=== PATIENT | male | born 1945 | race Caucasian/White ===

== ENCOUNTER 2022-05-17 10:15 | Emergency (ER) | payer MEDICARE, SELFPAY ==
--- NOTE | ~2022-05-17 | XR_ITS ---
XR chest 1V 05/17/2022 11:51 Indication: Weakness and dyspnea Procedure: AP view of the chest Comparison: No prior studies for comparison. Findings: Healed left rib fractures with deformity of the left thorax. Moderate cardiomegaly. No foca l air space disease, pulmonary edema, pleural effusion or suspected pneumothorax. Impression: 1: No acute cardiopulmonary disease. Reviewed, dictated and finalized at location A. Impression: 1: No acute cardiopulmonary disease.
--- NOTE | ~2022-05-17 | CT_ITS ---
EXAMINATION: CT brain wo con INDICATION: Generalized weakness COMPARISON: None TECHNIQUE: Standard unenhanced head CT. The dose-length product (DLP) was 605.33 mGy-cm. The mA was a djusted according to patient size. Iterative reconstruction technique was employed. FINDINGS: There is no acute intraparenchymal hemorrhage. No evidence of mass lesion. No evidence of a cute infarction. There is an old lacunar infarct of the left thalamus. There are subtle areas of low attenuation in the left frontal lobe, left insula, and left basal ganglia, likely prior infarction. T here is mild periventricular and subcortical hypodensity probably related to small vessel ischemic di sease. There is mild prominence of the sulci and ventricles related to cerebral atrophy. Intracranial calcified cerebral atherosclerosis is noted. There are no extra-axial collections. There is no mass effect or midline shift. The orbits and soft tissues are unremarkable. The visualized sinuses and mas toid air cells are well aerated. IMPRESSION: 1. No acute intracranial abnormality. 2. Age related findings. Reviewed, dictated and finalized at location B.
[2022-05-17 10:18] VITALS: BP 101/50; PULSE 79; RESP 16; TEMP 37; O2SAT 97
[2022-05-17 10:57] VITALS: BP 99/61; PULSE 88
--- NOTE | 2022-05-17 10:58 | PC.NURSE ---
REPORTS PT IS NOT DIZZY JUST WEAK REPORTS PCP THINKS PT HAS PARKINSON'S DISEASE AND HAS APPOINTMENT WITH NEUROLOGY IN [place] 05/30/22. REPORTS PT MOWED THE GRASS YESTERDAY BUT TODAY SO WEAK COULD NOT GET OUT OF BED. SHE ALSO REPORTS PT HAD TIA 5 YEARSAGO. SHE REPORTS PT SHUFFLES WHEN AMBULATED AND MOVES SLOW
[2022-05-17 11:02] VITALS: BP 101/57; PULSE 76
[2022-05-17 11:05] VITALS: BP 102/61; PULSE 84
--- NOTE | 2022-05-17 11:10 | ECG_ITS ---
Measurements Intervals [place] Rate: 61 P: [place]: 0 QRS: 2 QRSD: 96 T: 8 QT: 429 QTc: 433 Interpretive Statements ATRIAL FIBRILLATION DELAYED PRECORDIAL R/S TRANSITION BASELINE ARTIFACT- AVL, AVF ABNORMAL ECG Electronically Signed On 05-17-2022 15:30:38 CDT by Julio Cesar Huff D.O.
[2022-05-17 11:34] LABS: Basophils Absolute Auto 0.1 K/mm3 (0.0-0.1); Basophils Percent Auto 0.7 % (0.2-1.2); Eosinophils Absolute Auto 0.2 K/mm3 (0-0.3); Eosinophils Percent Auto 1.6 % (0-4.4); Hematocrit 42.4 % (42.0-52.0); Hemoglobin 14.7 g/dL (14.0-18.0); Immature Granulocyte Absolute 0.06 K/mm3 (0.00-0.031); Immature Granulocyte Percent A 0.4 % (0-0.5); Lymphocytes Percent Auto 18.1 % (18.3-44.2); Mean Corpuscular HGB Conc 34.7 g/dl (32-36); Mean Corpuscular Hemoglobin 31.1 pg (26-34); Mean Corpuscular Volume 89.8 fl (80-100); Monocytes Absolute Auto 1.7 K/mm3 (0.1-0.6); Monocytes Percent Auto 12.4 % (2.6-8.5); Neutrophils Absolute Auto 9.3 K/mm3 (1.3-6.7); Neutrophils Percent Auto 66.8 % (45.5-73.1); Platelet Count Result 254 k/mm3 (150-375); Red Blood Count 4.72 M/mm3 (4.6-6.20); Red Cell Distribution Width 13.1 % (11.5-14.5); White Blood Count 13.8 K/mm3 (4.5-10.0)
[2022-05-17 11:35] LABS: Appearance Urine Clear (Clear); Bilirubin Urine Negative (Negative); Blood Urine Negative (Negative); Color Urine Yellow (Yellow); Glucose Urine UA Negative (Negative); Ketones Urine Negative (Negative); Leukocyte Esterase Ur Negative LEU/UL (Negative); Nitrate Urine Negative (Negative); Protein Urine Negative (Negative); Specific Grav Ur 1.015 (1.001-1.035); Urobilinogen Urine 0.2 mg/dL (<2.0); pH Urine 6.5 (5.0-9.0)
[2022-05-17 11:37] LABS: Alanine Aminotransferase 19 U/L (6-50); Albumin Level 4.2 g/dL (3.5-5.1); Alkaline Phosphatase 59 U/L (38-126); Anion Gap 7 mmol/L (8-16); Aspartate Amino Transferase 23 U/L (17-59); Bilirubin,Total 0.8 mg/dL (0.2-1.3); Blood Urea Nitrogen 23 mg/dL (9-20); Calcium 9.1 mg/dL (8.4-10.2); Carbon Dioxide 30 mmol/L (22-30); Chloride 101 mmol/L (98-107); Estimated CRCL calculation 65 ml/min; Estimated Glomerular Filt Rate > 60; Glucose 96 mg/dL (65-110); Potassium 4.2 mmol/L (3.4-5.0); Sodium 138 mmol/L (137-145)
--- NOTE | 2022-05-17 11:37 | ED.WEAKNESS ---
HPI - Weakness General Chief complaint: Weakness Stated complaint: dizzy Time Seen by Provider: 05/17/22 11:30 History of Present Illness HPI Narrative: 76-year-old male presents emergency room coming by his . Has been having generalized weakness for several months. Seen by the primary physician has a scheduled appointment to be seen by neurologist for possible Parkinson's disease. However has not scheduled for another 2 to 3 weeks from now. Came in today because he is so weak that she had to help him get up out of the bed. After he was able to get up he was able to ambulate. He states he actually had a good day yesterday and mow the front and the back yard. He denies any focal weakness is just more generalized in nature. Denies any chills or fevers. No cough or congestion. No abdominal pain. No nausea vomiting diarrhea constipation. No blood in his stool or melanotic stools. There are a history of atrial fibrillation had a TIA about 5 years ago been on Xarelto ever since and no episodes since. Related Data Home Medications Medication Instructions Recorded Confirmed aspirin 81 mg tablet 81 mg PO 05/17/22 diltiazem HCl 240 mg 1 cap PO 05/17/22 capsule,extended release 24 hr, controlled (DILT-XR) lisinopril 2.5 mg tablet 1 tablet 05/17/22 rivaroxaban 20 mg tablet (Xarelto) 1 tablet 05/17/22 rosuvastatin 10 mg tablet 1 tablet 05/17/22 Allergies Allergy/AdvReac Type Severity Reaction Status Date / Time No Known Allergies Allergy Verified 05/17/22 11:23 Review of Systems Review of Systems: CONSTITUTIONAL: Denies fever, chills, or sweats. EYES: Denies visual changes, redness, or discharge. ENT: Denies rhinorrhea, congestion, sore throat, or otalgia. CARDIOVASCULAR: Denies chest pain, palpitations, or edema. RESPIRATORY: Denies cough or dyspnea. GASTROINTESTINAL: Denies abdominal pain, nausea, vomiting, or diarrhea. GENITOURINARY: Denies dysuria or hematuria. SKIN: Denies rash or itching. MUSCULOSKELETAL: Denies back pain, joint pain, or myalgia. NEUROLOGIC: Denies headache, numbness. Generalized weakness but no focal weakness PSYCHIATRIC: Denies anxiety or depression. [facility] Past Medical History Medical History Atrial fibrillation TIA (transient ischemic attack) Social History Social History Smoking status: Never smoker Living arrangements: with family Occupation/Education: retired Exam Narrative: APPEARANCE: Well appearing, no pain or distress, well-nourished. Head normocephalic and atraumatic. EYES: PERRLA/EOMI, conjunctivae very clear. NOSE: Normal with no drainage EARS:TMS clear Franca Sandoval, with good light reflex. THROAT: Pharynx clear, no exudate. NECK: Supple. No adenopathy, no masses. RESPIRATORY: Airway patent, respirations nonlabored. Clear to auscultation bilaterally, no rales, rhonchi, wheezing. CARDIOVASCULAR: Irregular rate and rhythm without murmurs, rubs, or gallops. ABDOMINAL: Soft, nontender, nondistended, no hepatosplenomegaly Musculoskeletal: Moves all extremities. Strength/ROM intact, No edema, No calf tenderness. NEURO: Alert. Cranial nerves II through XII intact. Normal gait. Good coordination. Nonfocal examination. No tremor noted SKIN:: Warm, dry. Normal Color PSYCHIATRIC: Normal affect/mood, normal interaction Course Vital Signs Vital signs: Vital Signs Temperature 98.6 F 05/17/22 10:18 Pulse Rate 79 05/17/22 10:18 Respiratory Rate 16 05/17/22 10:18 Blood Pressure 101/50 L 05/17/22 10:18 Pulse Oximetry 97 05/17/22 10:18 Oxygen Delivery Room Air 05/17/22 10:18 Temperature 98.6 F 05/17/22 10:18 Pulse Rate 63 05/17/22 12:21 Respiratory Rate 25 H 05/17/22 12:21 Blood Pressure 124/73 05/17/22 12:21 Pulse Oximetry 97 05/17/22 12:21 Oxygen Delivery Room Air 05/17/22 10:18 MDM - Weakness MDM Narrative Me
[2022-05-17 11:39] LABS: Add Urine Microscopic? NO
[2022-05-17] MEDS: SODIUM CHLORIDE 0.9% IV 1,000 ML 999 ML IV CONT (11:53)
[2022-05-17 11:54] VITALS: BP 117/77; PULSE 67; RESP 20; O2SAT 97
--- NOTE | 2022-05-17 11:54 | PC.NURSE ---
Pt returned from CT
[2022-05-17 12:21] VITALS: BP 124/73; PULSE 63; RESP 25; O2SAT 97
== END 2022-05-17 12:33 | disposition home or self-care (01) ==
PROVIDERS: Physician Assistant; Emergency Provider Emergency Medicine; PCP Internal Medicine
DX: R53.1 Weakness (principal); I48.20 Chronic atrial fibrillation, unspecified; Z86.73 Personal history of transient ischemic attack (TIA), and cerebral infarction without residual deficits; Z79.01 Long term (current) use of anticoagulants
CPT/HCPCS: 36415; 70450; 71045; 80053; 81003; 85025; 93005; 96360; 99284; J7030

== ENCOUNTER 2022-06-10 16:51 | Emergency (ER) | payer MEDICARE, SELFPAY ==
--- NOTE | 2022-06-10 16:53 | ECG_ITS ---
Measurements Intervals [place] Rate: 77 P: [place]: 0 QRS: 1 QRSD: 100 T: 13 QT: 381 QTc: 432 Interpretive Statements ATRIAL FIBRILLATION WITH ABERRANT CONDUCTION OR VENTRICULAR PREMATURE COMPLEXES LOW QRS VOLTAGE IN PRECORDIAL LEADS NONSPECIFIC T-WAVE ABNORMALITY Electronically Signed On 06-11-2022 11:35:51 CDT by Artie Gould M.D.
[2022-06-10 17:05] VITALS: BP 110/64; PULSE 75; RESP 15; TEMP 36.8; O2SAT 99
[2022-06-10 17:05] LABS: Basophils Absolute Auto 0.1 K/mm3 (0.0-0.1); Basophils Percent Auto 0.6 % (0.2-1.2); Eosinophils Absolute Auto 0.5 K/mm3 (0-0.3); Hematocrit 41.5 % (42.0-52.0); Hemoglobin 13.5 g/dL (14.0-18.0); Immature Granulocyte Absolute 0.02 K/mm3 (0.00-0.031); Immature Granulocyte Percent A 0.2 % (0-0.5); Lymphocytes Absolute Auto 2.63 K/mm3 (0.9-3.2); Lymphocytes Percent Auto 22.9 % (18.3-44.2); Mean Corpuscular HGB Conc 32.5 g/dl (32-36); Mean Corpuscular Hemoglobin 30.5 pg (26-34); Mean Corpuscular Volume 93.9 fl (80-100); Mean Platelet Volume 10.3 fl (7.4-10.4); Monocytes Absolute Auto 1.2 K/mm3 (0.1-0.6); Monocytes Percent Auto 10.2 % (2.6-8.5); Neutrophils Absolute Auto 7.1 K/mm3 (1.3-6.7); Neutrophils Percent Auto 62.1 % (45.5-73.1); Platelet Count Result 195 k/mm3 (150-375); Red Blood Count 4.42 M/mm3 (4.6-6.20); Red Cell Distribution Width 13.2 % (11.5-14.5); White Blood Count 11.5 K/mm3 (4.5-10.0)
[2022-06-10 17:15] LABS: Alanine Aminotransferase 17 U/L (6-50); Albumin Level 4.2 g/dL (3.5-5.1); Alkaline Phosphatase 47 U/L (38-126); Anion Gap 10 mmol/L (8-16); Aspartate Amino Transferase 30 U/L (17-59); Bilirubin,Total 0.6 mg/dL (0.2-1.3); Blood Urea Nitrogen 28 mg/dL (9-20); Carbon Dioxide 27 mmol/L (22-30); Chloride 103 mmol/L (98-107); Estimated CRCL calculation 66 ml/min; Estimated Glomerular Filt Rate > 60; Glucose 98 mg/dL (65-110); Potassium 3.9 mmol/L (3.4-5.0); Sodium 140 mmol/L (137-145)
== END 2022-06-10 18:18 | disposition left against medical advice (07) ==
LOC: ANHED 18:32
PROVIDERS: Emergency Provider Emergency Medicine; PCP Internal Medicine
DX: S09.90XA Unspecified injury of head, initial encounter (principal)
CPT/HCPCS: 36415; 80053; 85025; 93005; 99199

== ENCOUNTER 2022-09-24 23:41 | Inpatient (IN) | payer MEDICARE, SELFPAY ==
--- NOTE | ~2022-09-24 | CT_ITS ---
EXAMINATION: CT cervical spine wo con DATE: 09/25/2022 00:37 INDICATION: Neck pain. Fall. TECHNIQUE: Computed tomography (CT) of the cervical spine was performed without intravenous contrast. Automated exposure control and iterative reconstruction technique were employed. The dose-length pro duct was 565.60 mGy-cm. COMPARISON: None FINDINGS: There is mild kyphosis of cervical spine. Vertebral body heights are normal. There is a hea ling fracture of anteroinferior aspect of T2 vertebral body with callus formation. Vertebral body hei ghts are normal. There are bridging endplate osteophytes from C4 to T1 and from T2 to at least T4, co nsistent with diffuse idiopathic skeletal hyperostosis (DISH). There is mildly decreased disc height at C2-C3 and C3-C4. There is mildly decreased disc height at C4-C5 and moderately decreased disc heig ht at C5-C6 and C6-C7 with interbody fusion. 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 There is developmental osseous central canal stenosis. The following disc levels are specifically discussed: C2-C3: There is mild bilateral uncovertebral joint osteoarthritis. There is moderate bilateral facet joint osteoarthritis. There is mild bilateral neural foraminal stenosis. There is no central canal st enosis. C3-C4: There is mild right and moderate left uncovertebral joint osteoarthritis. There is moderate bi lateral facet joint osteoarthritis. There is mild bilateral neural foraminal stenosis. There is mild central canal stenosis. C4-C5: There is moderate bilateral uncovertebral joint hypertrophy. There is no facet joint osteoarth ritis. There is mild right and moderate left neural foraminal stenosis. There is severe central canal stenosis. C5-C6: There is moderate bilateral uncovertebral joint hypertrophy. There is ankylosis of the facet j oints without hypertrophy. There is mild bilateral neural foraminal stenosis. There is severe central canal stenosis. C6-C7: There is severe bilateral uncovertebral joint hypertrophy. There is ankylosis of the facet arcenio nts with mild hypertrophy. There is mild bilateral neural foraminal stenosis. There is severe central canal stenosis. C7-T1: There is mild bilateral uncovertebral joint hypertrophy. There is moderate right and mild left facet joint osteoarthritis. There is mild bilateral neural foraminal stenosis. There is mild central canal stenosis. IMPRESSION: 1. Healing fracture of T2 vertebral body. 2. Severe cervical spondylosis. 3. DISH. Reviewed, dictated and finalized at location A. ICAL ORDER FILLER
--- NOTE | ~2022-09-24 | XR_ITS ---
EXAMINATION: XR chest 1V portable DATE: 09/25/2022 00:20 INDICATION: Weakness. Fall. TECHNIQUE: A single frontal view of the chest was obtained. COMPARISON: Chest 2 views 05/17/2022 FINDINGS: There is mild atelectasis in the lower lung zones. No pleural effusion or pneumothorax. Car diomegaly is noted. There are prominent paracardial fat pads. IMPRESSION: 1. Mild atelectasis in the lower lung zones. 2. Cardiomegaly. Reviewed, dictated and finalized at location A. ING WORKER
--- NOTE | ~2022-09-24 | CT_ITS ---
EXAMINATION: CT brain wo con DATE: 09/25/2022 00:37 INDICATION: Neck pain. Fall. Unsteady gait. TECHNIQUE: Computed tomography (CT) of the head was performed without intravenous contrast. The mA wa s adjusted according to patient size. Iterative reconstruction technique was employed. The dose-lengt h product was 605.33 mGy-cm. COMPARISON: Head CT 05/17/2022 FINDINGS: There are old infarcts in left thalamus and left basal ganglia. There are scattered areas o f low attenuation in the cerebral white matter, which is within normal limits for the patient's age. There is no intracranial hemorrhage, acute infarction, or abnormal intracranial mass lesion. The vent ricles are normal in size. There is mild mucosal thickening in the paranasal sinuses. The mastoid air cells are normal. IMPRESSION: 1. 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 Reviewed, dictated and finalized at location A. [employer]
--- NOTE | ~2022-09-24 | MR_ITS ---
EXAMINATION: MR brain/brain stem wo con DATE: 09/25/2022 16:32 INDICATION: Right-sided weakness TECHNIQUE: Magnetic resonance imaging (MRI) of the brain and brainstem was performed without intraven ous contrast. Sequences included sagittal and axial T1-weighted SE, axial diffusion-weighted FS SE, a xial T2*-weighted GRE, axial T2-weighted FLAIR, and axial T2-weighted FSE. Apparent diffusion coeffic ient (ADC) maps were created. COMPARISON: Head CT dated 09/25/2022 FINDINGS: Small old left thalamic lacunar infarct. There are no areas of restricted diffusion to suggest acute infarction. Small T1 hypointense anterior falcine lipoma. No intracranial hemorrhage or other abnorma l intracranial mass lesion. There are scattered areas of nonspecific increased T2-weighted signal int ensity in the cerebral white matter, predominantly involving the deep and periventricular white matte r. There are no intraparenchymal signal abnormalities seen on the other pulse sequences. Symmetric pr ominence of the sulci consistent with mild age-appropriate diffuse cerebral volume loss. The ventricl es are symmetric and normal in size. There are no abnormal extra-axial fluid collections. Flow voids are seen in the cerebral arteries on the T2-weighted sequences consistent with their expected patency . Visualized orbits and soft tissues are unremarkable. IMPRESSION: 1. No acute intracranial process. 2. Small old lacunar infarct in the left thalamus. 3. Mild scattered white matter T2 hyperintensity which is within normal limits for age and likely seq uela of chronic small vessel ischemic disease. Reviewed, dictated and finalized at location B. QUALITY TECHNICIAN IMPRESSION: 1. No acute intracranial process. 2. Small old lacunar infarct in the left thalamus. 3. Mild scattered white matter T2 hyperintensity which is within normal limits for age and likely sequela of chronic small vessel ischemic disease.
[2022-09-24 23:45] VITALS: BP 168/78; PULSE 84; RESP 27; TEMP 37.7; O2SAT 98
[2022-09-24 23:57] VITALS: PULSE 91; RESP 30; O2SAT 98
--- NOTE | 2022-09-24 23:59 | ECG_ITS ---
Measurements Intervals [place] Rate: 92 P: [place]: 0 QRS: 49 QRSD: 86 T: 29 QT: 347 QTc: 430 Interpretive Statements ATRIAL FIBRILLATION DELAYED PRECORDIAL R/S TRANSITION BORDERLINE ST-T WAVE ABNORMALITY- INFERIOR LEADS BASELINE ARTIFACT- I, II, III, AVR, V1 ABNORMAL ECG COMPARED TO ECG 06/10/2022 16:56:57 NO SIGNIFICANT CHANGES Electronically Signed On 09-25-2022 7:49:57 BONE GRINDER by Julio Cesar Huff D.O.
[2022-09-25] VITALS (25 sets, daily range): BP systolic 117–155; BP diastolic 68–114; PULSE 62–98; RESP 18–30; TEMP 37.2–37.6; O2SAT 95–100; BMI 33.7; BMI 10.0
[2022-09-25 00:19] LABS: Basophils Absolute Auto 0.1 K/mm3 (0.0-0.1); Basophils Percent Auto 0.7 % (0.2-1.2); Eosinophils Absolute Auto 0.1 K/mm3 (0-0.3); Eosinophils Percent Auto 1.2 % (0-4.4); Hematocrit 43.7 % (42.0-52.0); Hemoglobin 14.4 g/dL (14.0-18.0); Immature Granulocyte Absolute 0.03 K/mm3 (0.00-0.031); Immature Granulocyte Percent A 0.3 % (0-0.5); Lymphocytes Percent Auto 13.9 % (18.3-44.2); Mean Corpuscular Hemoglobin 30.7 pg (26-34); Mean Corpuscular Volume 93.2 fl (80-100); Mean Platelet Volume 10.1 fl (7.4-10.4); Monocytes Absolute Auto 1.3 K/mm3 (0.1-0.6); Monocytes Percent Auto 15.6 % (2.6-8.5); Neutrophils Absolute Auto 5.9 K/mm3 (1.3-6.7); Neutrophils Percent Auto 68.3 % (45.5-73.1); Platelet Count Result 207 k/mm3 (150-375); Red Blood Count 4.69 M/mm3 (4.6-6.20); Red Cell Distribution Width 12.9 % (11.5-14.5); White Blood Count 8.6 K/mm3 (4.5-10.0)
[2022-09-25 00:29] LABS: Alanine Aminotransferase 24 U/L (6-50); Albumin Level 4.3 g/dL (3.5-5.1); Alkaline Phosphatase 64 U/L (38-126); Anion Gap 12 mmol/L (8-16); Aspartate Amino Transferase 30 U/L (17-59); Bilirubin,Total 0.4 mg/dL (0.2-1.3); Blood Urea Nitrogen 28 mg/dL (9-20); Calcium 9.1 mg/dL (8.4-10.2); Carbon Dioxide 28 mmol/L (22-30); Chloride 97 mmol/L (98-107); Estimated CRCL calculation 47 ml/min; Estimated Glomerular Filt Rate 46; Glucose 97 mg/dL (65-110); INR 2.8; Lactic Acid Reflex 0.9 mmol/L (0.7-2.0); Potassium 4.1 mmol/L (3.4-5.0); Prothrombin Time 28.6 Seconds (11.1-14.7); Sodium 137 mmol/L (137-145)
[2022-09-25 00:30] LABS: Partial Thromboplastin Time 39.1 SECONDS (22.3-36.8)
[2022-09-25 00:40] LABS: Troponin I 0.019 ng/mL (0.000-0.034)
[2022-09-25] MEDS: SODIUM CHLORIDE 0.9% IV 1,000 ML 999 ML IV CONT (00:42)
[2022-09-25 00:54] LABS: Influenza A QL RT-PCR Negative (Negative); Influenza B QL RT-PCR Negative (Negative); SARS-CoV-2 RNA PCR Positive
[2022-09-25 01:14] LABS: Appearance Urine Clear (Clear); Bilirubin Urine Negative (Negative); Blood Urine Trace-intact (Negative); Color Urine Yellow (Yellow); Glucose Urine UA Negative (Negative); Ketones Urine 1+ mg/dL (Negative); Leukocyte Esterase Ur Negative LEU/UL (Negative); Mucus Urine Rare /lpf; Nitrate Urine Negative (Negative); Protein Urine Negative (Negative); RBC Urine 0-2 /hpf (0-2); Urobilinogen Urine 0.2 mg/dL (<2.0); WBC Urine 0-3 /hpf; pH Urine 6.5 (5.0-9.0)
[2022-09-25 01:24] LABS: Add Urine Microscopic? YES
--- NOTE | 2022-09-25 01:55 | ED.GENADULT ---
HPI - General Adult General Chief complaint: Fall Stated complaint: FALLS, WEAKNESS Time Seen by Provider: 09/24/22 23:49 History of Present Illness HPI narrative: 77-year-old gentleman who presents the emergency department with chief complaint of generalized weakness and ground-level fall. The patient's family who has been staying with him for couple of days noticed that today he was more unsteady and the patient fell in the bathroom this evening. Patient was so weak that when he was trying to ambulate to the bathroom he urinated on himself. Patient has history of mobility issues and is scheduled to have a cervical spine surgery in the near future. Patient's has been sick which is why she is not in the emergency department tonight with him. Patient had a low-grade temperature upon arrival to the emergency department. Related Data Home Medications Medication Instructions Recorded Confirmed aspirin 81 mg tablet 81 mg PO 05/17/22 diltiazem HCl 240 mg 1 cap PO 05/17/22 capsule,extended release 24 hr, controlled (DILT-XR) lisinopril 2.5 mg tablet 1 tablet 05/17/22 rivaroxaban 20 mg tablet (Xarelto) 1 tablet 05/17/22 rosuvastatin 10 mg tablet 1 tablet 05/17/22 Adult One Daily Multivitamin 09/24/22 B Complex 09/24/22 Vitamin D3 09/24/22 calcium citrate 09/24/22 coQ10 (ubiquinol) 100 mg capsule 100 mg PO BID 09/24/22 mirabegron 50 mg tablet,extended mg PO 09/24/22 release 24 hr (Myrbetriq) Allergies Allergy/AdvReac Type Severity Reaction Status Date / Time No Known Allergies Allergy Verified 09/24/22 23:52 Review of Systems Review of Systems: A 10 system review of systems was completed on the patient and is negative except for what is stated in the HPI. Nursing and ancillary documentation was reviewed. [facility] Past Medical History Medical History Atrial fibrillation TIA (transient ischemic attack) Social History Social History Smoking status: Never smoker Exam Narrative: GENERAL: Well-appearing, well-nourished, and in no acute distress. HEAD: Normocephalic, atraumatic. EYES: PERRLA and EOMI. ENT: Nares clear, no rhinorrhea or epistaxis. Mucous membranes moist. NECK: Supple. CHEST: Clear to auscultation. No respiratory distress. HEART: Regular rate and rhythm. No murmur heard. Normal peripheral pulses. ABDOMEN: Soft, nontender, nondistended, normal active bowel sounds. EXTREMITIES: Normal range of motion. No edema. SKIN: Warm, dry, no rash. NEURO: No focal deficits. Alert and oriented x3. Patient has overall global weakness and is unable to ambulate even with maximal assistance PSYCH: Normal mood and affect. Course Course Emergency Course: Patient is feeling better after receiving IV fluids the patient was positive for COVID-19 patient was attempted for ambulation and was unable to stand due to generalized global weakness on his own power. The case will be discussed with the hospitalist for admission. Vital Signs Vital signs: Vital Signs Temperature 37.7 C H 09/24/22 23:45 Pulse Rate 84 09/24/22 23:45 Respiratory Rate 27 H 09/24/22 23:45 Blood Pressure 168/78 H 09/24/22 23:45 Pulse Oximetry 98 09/24/22 23:45 Oxygen Delivery Room Air 09/24/22 23:45 Temperature 37.7 C H 09/24/22 23:45 Pulse Rate 84 09/24/22 23:45 Respiratory Rate 27 H 09/24/22 23:45 Blood Pressure 168/78 H 09/24/22 23:45 Pulse Oximetry 98 09/24/22 23:45 Oxygen Delivery Room Air 09/24/22 23:45 Medical Decision Making Vital Signs Vital Signs: Vital Signs Temperature 37.7 C H 09/24/22 23:45 Pulse Rate 84 09/24/22 23:45 Respiratory Rate 27 H 09/24/22 23:45 Blood Pressure 168/78 H 09/24/22 23:45 Pulse Oximetry 98 09/24/22 23:45 Oxygen Delivery Room Air 09/24/22 23:45 Temperature 37.7 C H 09/24/22 23:45 Pulse Rat
[2022-09-25 03:29] LABS: Procalcitonin 0.1 ng/mL
--- NOTE | 2022-09-25 04:50 | ADMGEN ---
This patient, Lencho Ramsay, was admitted to Medical Room 255-. Patient/family oriented to hospital policies and general routines including ID bracelet, bed and alarms, visiting hours, pain management, procedures, bathroom and other care routines, personal items, smoking policy, room service/diet, and visiting hours. Information on how to activate the Rapid Response Team has been discussed. Patient/Family are encouraged to report perceived risks to care and to ask questions if they do not understand what they are told or what they should do.
[2022-09-25] MEDS: SODIUM CHLORIDE 0.9% IV 1,000 ML 125 ML IV CONT (05:41)
--- NOTE | 2022-09-25 08:31 | PM.IMHP ---
H&P: HPI History of Present Illness Date/Time: 09/25/22 08:31 Chief Complaint: generalised weakness Narrative: 77-year-old gentleman who presents the emergency department with chief complaint of generalized weakness and ground-level fall.? The patient's family who has been staying with him for couple of days noticed that today he was more unsteady and the patient fell in the bathroom this evening.? Patient was so weak that when he was trying to ambulate to the bathroom he urinated on himself.? Patient has history of mobility issues and is scheduled to have a cervical spine surgery in the near future.? Patient's has been sick which is why she is not in the emergency department tonight with him.? Patient had a low-grade temperature upon arrival to the emergency department. he was tested positive for COVID. he Is admitted for further evaluation and management Review of Systems Review of Systems: - CONSTITUTIONAL: Denies weight loss, fever and chills. - HEENT: Denies changes in vision and hearing - RESPIRATORY: Denies SOB and reports mild cough. - CV: Denies palpitations and CP. - GI: Denies abdominal pain, nausea, vomiting and diarrhea. - : Denies dysuria and urinary frequency. - MSK: Denies myalgia and joint pain. - SKIN: Denies rash and pruritus. - NEUROLOGICAL: Denies headache and syncope. - PSYCHIATRIC: Denies recent changes in mood. Denies anxiety and depression. All systems reviewed & are unremarkable except as noted in HPI and below PMFSH Past Medical History Medical History (Updated 09/25/22 @ 08:33 by Bill Cunningham MD) Atrial fibrillation TIA (transient ischemic attack) Family History Family History (Updated 09/25/22 @ 04:53 by Cici Paul RN) Mother Alzheimer disease Social History Social History Smoking status: Current some day smoker Tobacco type: cigarettes Second hand tobacco smoke exposure: No Additional smoking assessment comments: smokes one cigar every 3rd day, has been going on for 20 years Alcohol intake: never Substance use: current Substance use type: marijuana Last use: unknown but w/in this year Lack of Transportation: No Lack of Food: Never True Current Housing: I Have Housing Concerned About Future Housing: No Difficulty Paying Gas/Electric Bills: No Difficulty Paying for Meds: No Currently Unemployed: No Education: High School Diploma/GED Difficulty w/ Childcare or Family Care: No Spiritual care concerns: No (Mu-Ism) Meds Home Medications and Allergies Home Medications Medication Instructions Recorded Confirmed Type aspirin 81 mg tablet 81 mg PO DAILY 05/17/22 09/25/22 History diltiazem HCl 240 mg 1 cap PO DAILY 05/17/22 09/25/22 History capsule,extended release 24 hr, controlled (DILT-XR) lisinopril 2.5 mg tablet 1 tablet PO DAILY 05/17/22 09/25/22 History rivaroxaban 20 mg tablet (Xarelto) 1 tablet PO DAILY 05/17/22 09/25/22 History rosuvastatin 10 mg tablet 1 tablet PO DAILY 05/17/22 09/25/22 History Adult One Daily Multivitamin 1 tablet PO DAILY 09/24/22 09/25/22 History B Complex 1 tablet PO DAILY 09/24/22 09/25/22 History Vitamin D3 5,000 mcg PO DAILY 09/24/22 09/25/22 History calcium citrate 400 mg PO DAILY 09/24/22 09/25/22 History coQ10 (ubiquinol) 100 mg capsule 100 mg PO BID 09/24/22 09/25/22 History mirabegron 50 mg tablet,extended 50 mg PO DAILY 09/24/22 09/25/22 History release 24 hr (Myrbetriq) Allergies Allergy/AdvReac Type Severity Reaction Status Date / Time No Known Allergies Allergy Verified 09/24/22 23:52 Vital Signs Vital Signs - 24 hr 09/24/22 23:45 09/24/22 23:57 09/25/22 00:00 Temperature 99.8 F H Pulse Rate 84 91 90 Respiratory Rate 27 H 30 H 28 H Blood Pressure 168/78 H Pulse Oximetry 98 98 98 Oxygen Delivery Room Air 09/25/22 00:01 09/25/22 00:15 09/25/22 00:16 Temperature
[2022-09-25 09:03] LABS: Creatine Kinase 63 U/L (55-170)
[2022-09-25] MEDS: CALCIUM CARBONATE (OSCAL) 500 MG TABLET PO (10:00)
[2022-09-25] MEDS: CHOLECALCIFEROL 1,000 UNITS TABLET 5000 UNITS PO (10:00)
[2022-09-25] MEDS: ROSUVASTATIN 10 MG TABLET PO (10:00)
[2022-09-25] MEDS: ASPIRIN 81 MG CHEWABLE TABLET PO (10:00)
[2022-09-25] MEDS: MIRABEGRON 50 MG ER TABLET PO (10:00)
[2022-09-25] MEDS: RIVAROXABAN 20 MG TABLET PO (17:27)
[2022-09-26] VITALS (17 sets, daily range): BP systolic 69–138; BP diastolic 42–89; PULSE 64–93; RESP 16–18; TEMP 36.7–36.9; O2SAT 95–97
[2022-09-26] MEDS: SODIUM CHLORIDE 0.9% IV 1,000 ML 125 ML IV CONT (03:17)
--- NOTE | 2022-09-26 06:34 | PC.NURSE ---
patient up to bathroom at 0430 for bm. mx noted afib rvr with hr 150-180 with exertion. patient back to bed and medicated for pain and anxiety but hr sustained at over 150 for an additional 15 -20 min. order recieved for lopressor 5mg iv. patient continued to stay in afib rvr. stat ekg confirmed rhythm to be afib rvr 150. order recieved to tx to imu and start card gtt. report called to elizabeth and patient tx to room 205.
[2022-09-26 06:37] LABS: Basophils Absolute Auto 0.1 K/mm3 (0.0-0.1); Basophils Percent Auto 0.8 % (0.2-1.2); Eosinophils Percent Auto 0.4 % (0-4.4); Hematocrit 42.6 % (42.0-52.0); Hemoglobin 14.4 g/dL (14.0-18.0); Immature Granulocyte Absolute 0.01 K/mm3 (0.00-0.031); Immature Granulocyte Percent A 0.1 % (0-0.5); Lymphocytes Absolute Auto 1.89 K/mm3 (0.9-3.2); Lymphocytes Percent Auto 22.2 % (18.3-44.2); Mean Corpuscular HGB Conc 33.8 g/dl (32-36); Mean Corpuscular Hemoglobin 30.4 pg (26-34); Mean Corpuscular Volume 89.9 fl (80-100); Mean Platelet Volume 10.5 fl (7.4-10.4); Monocytes Absolute Auto 1.5 K/mm3 (0.1-0.6); Neutrophils Absolute Auto 5.1 K/mm3 (1.3-6.7); Neutrophils Percent Auto 59.5 % (45.5-73.1); Platelet Count Result 179 k/mm3 (150-375); Red Blood Count 4.74 M/mm3 (4.6-6.20); Red Cell Distribution Width 12.6 % (11.5-14.5); White Blood Count 8.5 K/mm3 (4.5-10.0)
[2022-09-26 06:57] LABS: Alanine Aminotransferase 23 U/L (6-50); Albumin Level 3.9 g/dL (3.5-5.1); Alkaline Phosphatase 54 U/L (38-126); Anion Gap 14 mmol/L (8-16); Aspartate Amino Transferase 37 U/L (17-59); Bilirubin,Total 0.5 mg/dL (0.2-1.3); Blood Urea Nitrogen 17 mg/dL (9-20); Calcium 8.1 mg/dL (8.4-10.2); Carbon Dioxide 27 mmol/L (22-30); Chloride 94 mmol/L (98-107); Estimated CRCL calculation 72 ml/min; Estimated Glomerular Filt Rate > 60; Glucose 92 mg/dL (65-110); Magnesium 1.9 mg/dL (1.6-2.3); Potassium 3.8 mmol/L (3.4-5.0); Sodium 135 mmol/L (137-145)
[2022-09-26] MEDS: CALCIUM CARBONATE (OSCAL) 500 MG TABLET PO (08:06)
[2022-09-26] MEDS: ROSUVASTATIN 10 MG TABLET PO (08:06)
[2022-09-26] MEDS: ASPIRIN 81 MG CHEWABLE TABLET PO (08:06)
[2022-09-26] MEDS: MIRABEGRON 50 MG ER TABLET PO (08:06)
[2022-09-26] MEDS: CHOLECALCIFEROL 1,000 UNITS TABLET 5000 UNITS PO (08:07)
--- NOTE | 2022-09-26 13:46 | PM.IMPN ---
Progress Note: A&P Assessment and Plan (1) COVID-19: Code(s): U07.1 - COVID-19 Status: Acute (2) Generalized weakness: Code(s): R53.1 - Weakness Status: Acute (3) KRYSTA (acute kidney injury): Code(s): N17.9 - Acute kidney failure, unspecified Status: Acute (4) Atrial fibrillation: Code(s): I48.91 - Unspecified atrial fibrillation Status: Acute Plan # generalized weakness: likely due to underlying COVID infection. continue to monitor # Fall: Head CT and Cervical Spine CT negative. 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 MRI brain negative for acute stroke. PT OT to see # COVID 19 positive: not hypoxic. CXR with mild atelectasis in lower lung zones. cardiomegaly. # KRYSTA: mild. continue to monitor. hold lisinopril. Renal failure resolved. If eating okay will stop IV fluid. # atrial fibrillation: home medications # HTN: home diltiazem. hold lisinopril for now. # HLP: rosuvastatin. CK level normal. LFT normal # Cervical spine disease: planned for surgery. CT with healing fracture of T2 vertebral body with severe cerevical spondylosis and DISH # DVT proph: xarelto # Code status: full code Subjective Date/time seen: 09/26/22 13:46 Interval history: Feels okay. Generally weak. Denies any new complaint. No she chest pain or shortness of breath. No fever chills. Mild cough present Review of Systems Review of Systems: All systems reviewed & are unremarkable except as noted in HPI and below Exam Narrative: GENERAL: Well-appearing, well-nourished, and in no acute distress. HEAD: Normocephalic, atraumatic. EYES: PERRLA and EOMI. ENT: Nares clear, no rhinorrhea or epistaxis.? Mucous membranes moist. NECK: Supple. CHEST: Clear to auscultation.? No respiratory distress. HEART: Regular rate and rhythm.? No murmur heard.? Normal peripheral pulses. ABDOMEN: Soft, nontender, nondistended, normal active bowel sounds. EXTREMITIES: Normal range of motion.? No edema. SKIN: Warm, dry, no rash. NEURO: No focal deficits.? Alert and oriented x3.? Patient has overall global weakness PSYCH: Normal mood and affect. Objective Data Vital Signs Vital Signs: Vital Signs - 24 hr 09/25/22 14:52 09/25/22 15:47 09/25/22 20:28 Temperature 99.0 F 98.9 F Pulse Rate 76 87 Respiratory Rate 20 18 Blood Pressure 117/68 130/73 Pulse Oximetry 95 98 Oxygen Delivery Room Air 09/25/22 20:00 09/25/22 20:00 09/26/22 00:00 Temperature Pulse Rate 87 87 87 Respiratory Rate 18 Blood Pressure Pulse Oximetry 98 Oxygen Delivery Room Air 09/26/22 06:51 09/26/22 04:00 09/26/22 08:00 Temperature 98.1 F Pulse Rate 88 87 Respiratory Rate 16 Blood Pressure 128/72 Pulse Oximetry 96 Oxygen Delivery Room Air 09/26/22 08:00 09/26/22 11:37 09/26/22 11:49 Temperature Pulse Rate 91 Respiratory Rate Blood Pressure 96/53 L 92/51 L Pulse Oximetry Oxygen Delivery 09/26/22 12:14 09/26/22 12:15 09/26/22 12:17 Temperature Pulse Rate Respiratory Rate Blood Pressure 69/42 L 76/51 L 110/72 Pulse Oximetry Oxygen Delivery Intake/Output Intake/Output: Intake & Output 09/23/22 09/24/22 09/25/22 09/26/22 23:59 23:59 23:59 23:59 Intake Total 3220 450 Output Total 650 Balance 2570 450 Meds/Results Medications: Active Medications Generic Name Dose Route Start Last Admin Trade Name Freq PRN Reason Stop Dose Admin Acetaminophen 650 mg 09/25/22 02:11 Acetaminophen 325 Mg Tablet PO Q4H PRN Mild Pain (1-3) or Fever Aspirin 81 mg 09/25/22 09:00 09/26/22 08:06 Aspirin 81 Mg Chewable Tablet PO 10/25/22 08:59 81 mg DAILY JUANA Administration Calcium Carbonate 500 mg 09/25/22 09:00 09/26/22 08:06 Calcium Carbonate (Oscal) 500 Mg Tablet PO 10/25/22 08:59 500 mg DAILY JUANA Administration Diltiazem HCl 240 mg 09/25/22 09:00 09/26/22 08:06 Diltiazem Hcl Cd 240
[2022-09-26] MEDS: RIVAROXABAN 20 MG TABLET PO (17:19)
[2022-09-27] VITALS (11 sets, daily range): BP systolic 81–121; BP diastolic 53–94; PULSE 64–93; RESP 16–20; TEMP 35.7–36.6; O2SAT 96
[2022-09-27 06:20] LABS: Basophils Absolute Auto 0.1 K/mm3 (0.0-0.1); Basophils Percent Auto 0.7 % (0.2-1.2); Eosinophils Absolute Auto 0.2 K/mm3 (0-0.3); Eosinophils Percent Auto 2.5 % (0-4.4); Hematocrit 43.4 % (42.0-52.0); Hemoglobin 14.7 g/dL (14.0-18.0); Immature Granulocyte Absolute 0.01 K/mm3 (0.00-0.031); Immature Granulocyte Percent A 0.1 % (0-0.5); Lymphocytes Percent Auto 35.2 % (18.3-44.2); Mean Corpuscular HGB Conc 33.9 g/dl (32-36); Mean Corpuscular Hemoglobin 30.6 pg (26-34); Mean Corpuscular Volume 90.4 fl (80-100); Mean Platelet Volume 10.6 fl (7.4-10.4); Neutrophils Absolute Auto 3.2 K/mm3 (1.3-6.7); Neutrophils Percent Auto 46.5 % (45.5-73.1); Platelet Count Result 174 k/mm3 (150-375); Red Cell Distribution Width 12.4 % (11.5-14.5); White Blood Count 6.8 K/mm3 (4.5-10.0)
[2022-09-27 06:46] LABS: Alanine Aminotransferase 26 U/L (6-50); Albumin Level 3.8 g/dL (3.5-5.1); Alkaline Phosphatase 58 U/L (38-126); Anion Gap 9 mmol/L (8-16); Aspartate Amino Transferase 45 U/L (17-59); Bilirubin,Total 0.5 mg/dL (0.2-1.3); Blood Urea Nitrogen 16 mg/dL (9-20); Calcium 8.6 mg/dL (8.4-10.2); Carbon Dioxide 30 mmol/L (22-30); Chloride 98 mmol/L (98-107); Estimated CRCL calculation 66 ml/min; Estimated Glomerular Filt Rate > 60; Glucose 95 mg/dL (65-110); Magnesium 2.2 mg/dL (1.6-2.3); Potassium 4.1 mmol/L (3.4-5.0); Sodium 137 mmol/L (137-145)
[2022-09-27] MEDS: CHOLECALCIFEROL 1,000 UNITS TABLET 5000 UNITS PO (09:34)
[2022-09-27] MEDS: MIRABEGRON 50 MG ER TABLET PO (09:34)
[2022-09-27] MEDS: ROSUVASTATIN 10 MG TABLET PO (09:34)
[2022-09-27] MEDS: CALCIUM CARBONATE (OSCAL) 500 MG TABLET PO (09:34)
[2022-09-27] MEDS: ASPIRIN 81 MG CHEWABLE TABLET PO (09:34)
--- NOTE | 2022-09-27 13:32 | PM.IMPN ---
Progress Note: A&P Assessment and Plan (1) COVID-19: Code(s): U07.1 - COVID-19 Status: Acute (2) Generalized weakness: Code(s): R53.1 - Weakness Status: Acute (3) KRYSTA (acute kidney injury): Code(s): N17.9 - Acute kidney failure, unspecified Status: Acute (4) Atrial fibrillation: Code(s): I48.91 - Unspecified atrial fibrillation Status: Acute Plan # generalized weakness: likely due to underlying COVID infection. continue to monitor. Patient still orthostatic positive # orthostatic hypotension: Likely due to dehydration/ deconditioning. Will recheck and monitor. # Fall: Head CT and Cervical Spine CT negative. 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 MRI brain negative for acute stroke. PT OT to see # COVID 19 positive: not hypoxic. CXR with mild atelectasis in lower lung zones. cardiomegaly. # KRYSTA: mild. continue to monitor. hold lisinopril. Renal failure resolved. IV fluids stopped # atrial fibrillation: home medications # HTN: home diltiazem. hold lisinopril for now. # HLP: rosuvastatin. CK level normal. LFT normal # Cervical spine disease: planned for surgery. CT with healing fracture of T2 vertebral body with severe cerevical spondylosis and DISH # DVT proph: xarelto # Code status: full code # disposition: accepted to [facility] swing bed. however He does not want to go there. As far away. Will let care coordination a Subjective Date/time seen: 09/27/22 13:32 Interval history: Feeling better but still weak. He was orthostatic positive yesterday. He has some cough but no shortness of breath or chest pain. He would like to go home. Discussed risk Of going home due to his generalized weakness Review of Systems Review of Systems: All systems reviewed & are unremarkable except as noted in HPI and below Exam Narrative: GENERAL: Well-appearing, well-nourished, and in no acute distress. HEAD: Normocephalic, atraumatic. EYES: PERRLA and EOMI. ENT: Nares clear, no rhinorrhea or epistaxis.? Mucous membranes moist. NECK: Supple. nontender CHEST: Clear to auscultation.? No respiratory distress. HEART: Regular rate and rhythm.? No murmur heard.? Normal peripheral pulses. ABDOMEN: Soft, nontender, nondistended, normal active bowel sounds. EXTREMITIES: Normal range of motion.? No edema. SKIN: Warm, dry, no rash. NEURO: No focal deficits.? Alert and oriented x3.? Patient has overall global weakness PSYCH: Normal mood and affect. Objective Data Vital Signs Vital Signs: Vital Signs - 24 hr 09/26/22 14:45 09/26/22 14:47 09/26/22 14:50 Temperature Pulse Rate Respiratory Rate Blood Pressure 122/78 112/74 102/70 Pulse Oximetry Oxygen Delivery 09/26/22 16:00 09/26/22 16:51 09/26/22 21:08 Temperature 98.1 F 98.4 F Pulse Rate 80 78 93 Respiratory Rate 18 16 Blood Pressure 132/64 138/89 Pulse Oximetry 97 95 Oxygen Delivery 09/26/22 20:00 09/26/22 20:00 09/27/22 00:00 Temperature Pulse Rate 77 93 Respiratory Rate Blood Pressure Pulse Oximetry Oxygen Delivery Room Air 09/27/22 04:00 09/27/22 07:14 09/27/22 09:30 Temperature 97.8 F Pulse Rate 76 78 Respiratory Rate 16 Blood Pressure 121/67 Pulse Oximetry 96 Oxygen Delivery Room Air 09/27/22 08:00 09/27/22 12:04 Temperature Pulse Rate 78 89 Respiratory Rate Blood Pressure Pulse Oximetry Oxygen Delivery Intake/Output Intake/Output: Intake & Output 09/24/22 09/25/22 09/26/22 09/27/22 23:59 23:59 23:59 23:59 Intake Total 3220 2040 570 Output Total 650 Balance 2570 2040 570 Meds/Results Medications: Active Medications Generic Name Dose Route Start Last Admin Trade Name Freq PRN Reason Stop Dose Admin Acetaminophen 650 mg 09/25/22 02:11 Acetaminophen 325 Mg Tablet PO Q4H PRN Mild Pain (1-3) or Fever Aspirin 81 mg 09/25/22 09:00 09/27/22 09:34 As
[2022-09-27] MEDS: SODIUM CHLORIDE 0.9% IV 500 ML 75 ML IV CONT (15:54)
[2022-09-27] MEDS: RIVAROXABAN 20 MG TABLET PO (17:54)
[2022-09-28] VITALS (9 sets, daily range): BP systolic 95–132; BP diastolic 56–71; PULSE 72–94; RESP 16–18; TEMP 36–36.7; O2SAT 94–99
[2022-09-28 05:53] LABS: Basophils Absolute Auto 0.1 K/mm3 (0.0-0.1); Basophils Percent Auto 0.9 % (0.2-1.2); Eosinophils Absolute Auto 0.5 K/mm3 (0-0.3); Eosinophils Percent Auto 8.9 % (0-4.4); Hematocrit 43.2 % (42.0-52.0); Hemoglobin 14.6 g/dL (14.0-18.0); Immature Granulocyte Absolute 0.01 K/mm3 (0.00-0.031); Immature Granulocyte Percent A 0.2 % (0-0.5); Lymphocytes Absolute Auto 2.17 K/mm3 (0.9-3.2); Lymphocytes Percent Auto 37.7 % (18.3-44.2); Mean Corpuscular HGB Conc 33.8 g/dl (32-36); Mean Corpuscular Hemoglobin 30.4 pg (26-34); Mean Corpuscular Volume 89.8 fl (80-100); Mean Platelet Volume 10.3 fl (7.4-10.4); Monocytes Absolute Auto 0.7 K/mm3 (0.1-0.6); Neutrophils Absolute Auto 2.3 K/mm3 (1.3-6.7); Neutrophils Percent Auto 40.3 % (45.5-73.1); Platelet Count Result 175 k/mm3 (150-375); Red Blood Count 4.81 M/mm3 (4.6-6.20); Red Cell Distribution Width 12.1 % (11.5-14.5); White Blood Count 5.8 K/mm3 (4.5-10.0)
[2022-09-28 05:59] LABS: Alanine Aminotransferase 27 U/L (6-50); Albumin Level 3.6 g/dL (3.5-5.1); Alkaline Phosphatase 51 U/L (38-126); Anion Gap 9 mmol/L (8-16); Aspartate Amino Transferase 39 U/L (17-59); Bilirubin,Total 0.5 mg/dL (0.2-1.3); Blood Urea Nitrogen 19 mg/dL (9-20); Calcium 8.6 mg/dL (8.4-10.2); Carbon Dioxide 31 mmol/L (22-30); Chloride 100 mmol/L (98-107); Estimated CRCL calculation 72 ml/min; Estimated Glomerular Filt Rate > 60; Glucose 91 mg/dL (65-110); Magnesium 2.1 mg/dL (1.6-2.3); Potassium 3.9 mmol/L (3.4-5.0); Sodium 140 mmol/L (137-145)
--- NOTE | 2022-09-28 09:44 | PM.DS ---
DS: Admitting Diagnosis Discharge Date 09/28/2022 Admitting Diagnosis generalized weakness DS: Discharge Diagnosis Discharge Diagnosis (1) COVID-19: Code(s): U07.1 - COVID-19 Status: Acute (2) Generalized weakness: Code(s): R53.1 - Weakness Status: Acute (3) KRYSTA (acute kidney injury): Code(s): N17.9 - Acute kidney failure, unspecified Status: Acute (4) Atrial fibrillation: Code(s): I48.91 - Unspecified atrial fibrillation Status: Acute DS: Summary Hospital Course Hospital Course: # generalized weakness: likely due to underlying COVID infection. continue to monitor.? Patient still orthostatic positive was treated with IV fluid with improvement # orthostatic hypotension:? Likely due to dehydration/ deconditioning.? recheck and monitor. Treated with IV fluid. Improved continue PT OT # Fall: Head CT and Cervical Spine CT negative. 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 MRI brain negative for acute stroke.? PT OT to see who recommended rehabilitation at SNF # COVID 19 positive: not hypoxic. CXR with mild atelectasis in lower lung zones. cardiomegaly. # KRYSTA: mild. continue to monitor. hold lisinopril.? Renal failure resolved.? ? IV fluids stopped. Due to orthostatic hypotension and mild KRYSTA lisinopril discontinued at discharge # atrial fibrillation: home medications # HTN: home diltiazem. hold lisinopril for now. and discontinued at discharge # HLP: rosuvastatin.? CK level normal. LFT normal # Cervical spine disease: planned for surgery. CT with healing fracture of T2 vertebral body with severe cerevical spondylosis and DISH # DVT proph: xarelto # Code status: full code # disposition:? ? accepted to [facility] swing bed. discharged to [facility] swing bed for further rehabilitation Time Spent with Patient Time attestation: Total time spent providing and/or coordinating discharge services: 35 minutes Exam Narrative: GENERAL: Well-appearing, well-nourished, and in no acute distress. HEAD: Normocephalic, atraumatic. EYES: PERRLA and EOMI. ENT: Nares clear, no rhinorrhea or epistaxis.? Mucous membranes moist. NECK: Supple. nontender CHEST: Clear to auscultation.? No respiratory distress. HEART: Regular rate and rhythm.? No murmur heard.? Normal peripheral pulses. ABDOMEN: Soft, nontender, nondistended, normal active bowel sounds. EXTREMITIES: Normal range of motion.? No edema. SKIN: Warm, dry, no rash. NEURO: No focal deficits.? Alert and oriented x3.? Patient has overall global weakness PSYCH: Normal mood and affect. DS: Data Data Completed and Pending Labs on day of discharge: Labs from last 24 hours 09/28/22 09/28/22 05:21 05:21 WBC 5.8 RBC 4.81 Hgb 14.6 Hct 43.2 MCV 89.8 MCH 30.4 MCHC 33.8 RDW 12.1 Plt Count 175 MPV 10.3 Immature Gran % (Auto) 0.2 Neut % (Auto) 40.3 L Lymph % (Auto) 37.7 [place] % (Auto) 12.0 H Eos % (Auto) 8.9 H Baso % (Auto) 0.9 Lymph # (Auto) 2.17 [place] # (Auto) 0.7 H Eos # (Auto) 0.5 H Baso # (Auto) 0.1 Abs Immat Gran (auto) 0.01 Absolute Neuts (auto) 2.3 Absolute Nucleated RBC 0.0 Nucleated RBC % 0.0 Sodium 140 Potassium 3.9 Chloride 100 Carbon Dioxide 31 H Anion Gap 9 BUN 19 Creatinine 1.00 Estim Creat Clear Calc 72 Estimated GFR > 60 Glucose 91 Calcium 8.6 Magnesium 2.1 Total Bilirubin 0.5 AST 39 ALT 27 Alkaline Phosphatase 51 Total Protein 7.0 Albumin 3.6 Imaging Radiologist's impression: ITS Impressions Chest X-Ray 09/25/22 06:54 IMPRESSION: 1. Mild atelectasis in the lower lung zones. 2. Cardiomegaly. Head CT 09/25/22 06:57 IMPRESSION: 1. 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 Cervical Spine CT 09/25/22 07:09 IMPRESSION: 1. Healing fracture of T2 vertebral body. 2. Severe cervical spondylosis. 3. DISH. Brain MRI 09/25/22 17:36 IMPRESSIO
[2022-09-28] MEDS: ASPIRIN 81 MG CHEWABLE TABLET PO (09:46)
[2022-09-28] MEDS: CHOLECALCIFEROL 1,000 UNITS TABLET 5000 UNITS PO (09:46)
[2022-09-28] MEDS: CALCIUM CARBONATE (OSCAL) 500 MG TABLET PO (09:46)
[2022-09-28] MEDS: ROSUVASTATIN 10 MG TABLET PO (09:46)
[2022-09-28] MEDS: MIRABEGRON 50 MG ER TABLET PO (10:24)
== END 2022-09-28 15:20 | disposition swing bed (61) | DRG 178 ==
LOC: ANHED 09-25 02:01 → ANH2MED 09-25 03:36
PROVIDERS: Admitting Provider Internal Medicine; Emergency Provider Emergency Medicine; PCP Internal Medicine; Visit Provider Internal Medicine
DX: U07.1 COVID-19 (principal); N17.9 Acute kidney failure, unspecified; I95.1 Orthostatic hypotension; R53.1 Weakness; I48.91 Unspecified atrial fibrillation; I10 Essential (primary) hypertension; E78.5 Hyperlipidemia, unspecified; M48.10 Ankylosing hyperostosis [Forestier], site unspecified; W18.30XA Fall on same level, unspecified, initial encounter; F17.290 Nicotine dependence, other tobacco product, uncomplicated; M47.812 Spondylosis without myelopathy or radiculopathy, cervical region; M84.68XD Pathological fracture in other disease, other site, subsequent encounter for fracture with routine healing; Z79.899 Other long term (current) drug therapy
CPT/HCPCS: 36415; 70450; 70551; 71045; 72125; 80053; 81001; 82550; 83605; 83735; 84145; 84484; 85025; 85610; 85730; 87502; 93005; 96361; 96365; 97110; 97162; 97166; 97530; 97535; 99285; A9270; G0378; J0131; J7030; J7040; U0003; U0005

== ENCOUNTER 2022-09-28 16:03 | Inpatient (IN) | payer MEDICARE, SELFPAY ==
--- OUTSIDE RECORDS SUMMARY | 2022-09-28 16:09 | XMS_ITS | Encounter Summary ---
:1945 Author Reason for Visit fell and hurt his back about 10 days ago Assessment and Plan Assessment Note Patient presented for follow up. Studie s ordered as below. Discussed plan with patient/caregiver, who expressed underst anding. Follow up as noted below. 1. Spinal stenosis in cervical region ? neurological surgeon referral 2. Essential hypertension -- recheck lab(s) 09/25/22 ? lisinopril 2.5 mg tablet ? microalbumin/creatinine, mass ratio, urine 3. Hyperlipidemia LDL control (LDL of 79 on 07/27/2019) -- will change Lovastatin 20 mg to --> R osuvastain 10 mg qd -- recheck lab(s) 09/25/22 ? rosuvastatin 10 mg tablet ? lipid panel, serum ? CMP, serum or plasma 4. Atrial fibrillation -- recheck lab(s) 09/25/22 ? Xarelto 20 mg tablet ? CBC w/ auto diff 5. Transient cerebral ischemia (after stopping Xarelto x 1 day) -- BP controlled LDL was 79 on 07/27/2019 -- Neurosurgeon Dr Armand Jones recommend s adding low dose Aspirin 81 mg qd -- recheck lab(s) 09/25/22 6. Overactive bladder -- improved w/ decreasing evening fluid intake ? Myrbetriq 50 mg tablet,extended relea se 7. Body mass index 30+ - obesity -- advised weight loss; Patient gained 1 # since his last visit -- Patient's BMI today is 34.2 (ideal is between 20-25) ? advised to lose weight 8. Hepatitis C screening -- tested negative for Hepatitis C on
--- OUTSIDE RECORDS SUMMARY | 2022-09-28 16:09 | XMS_ITS ---
:1945 Author Care Team Providers Name Role Phone DR. VASILE GONZALES Primary Care Provider [phone] DR. VASILE GONZALES Referring Provider [phone] Allergies Code Code System Name Reaction Severity Status Onset NKDA ? Medications Name Status Start Date Stop Date ? ? aspirin 81 mg chewable tablet Active ? No t available Chew 1 tablet every day by oral route. Boostrix Tdap 2.5 Lf unit-8 mcg-5 Lf/0.5 mL intramuscular suspen lois Active ? Not available ADM 0.5ML IM UTD calcium 600 mg capsule Active ? Not avail able Take by oral route. CoQ10 Active ? Not available DILT-XR 240 mg capsule, extended release Active ? Not available Take 1 capsule every day by oral route. Fluzone High-Dose 2019-20 (PF) 180 mcg/0.5 mL intramuscular syri nge Active ? Not available ADMINISTER 0.5ML IN THE MUSCLE DIRECTED lisinopril 5 mg tablet Active ? Not avail able TK 1 T PO QD methylprednisolone 4 mg tablets in a dose pack Active ? Not available FPD Prevnar 13 (PF) 0.5 mL intramuscular syringe Active ? Not available ADM 0.5ML IM UTD rosuvastatin 10 mg tablet Active ? Not av ailable TK 1 T PO DAILY. STOP THE LOVASTATIN Shingrix (PF) 50 mcg/0.5 mL intramuscular suspension, kit Active ? Not available Problems No Known Problems Procedures Date Name Performed by ? ? Total Knee Arthroplasty Information not available 12/02/2019 XR, Knee In-Office Order Internal Use Only DO Not Attach Compendium DO N
--- OUTSIDE RECORDS SUMMARY | 2022-09-28 16:09 | XMS_ITS | Encounter Summary ---
:1945 Author Care Team Providers Name Role Phone Saul Cheng MD Primary Care Provider [phone] Reason for Visit new patient Assessment and Plan 1. Benign essential hypertension Now well controlled 2. Obstructive sleep apnea syndrome 3. Paroxysmal atrial fibrillation Rate is well controlled On Xarelto Obtain echo to evaluate for structural/f unctional disease. 4. Dyslipidemia Needs to keep LDL less than 70, and HDL more than 40 Will get lipid profile results from PCP 5. Pre-surgery evaluation Lexiscan Myoview stress test, pt can no t walk. Has known coronary artery disease, with atypical symptoms now, the patient is not able to walk on treadmill Discussion Note: None recorded.Patient educational handouts: No information available. Plan of Care Reminders Provider Appointments None recorded. ? ? Lab None recorded. ? ? Referral None recorded. ? ? Procedures None recorded. ? ? Surgeries None recorded. ? ? Imaging None recorded. ? ? Medications Name Start Date ? ? aspirin 81 mg tablet,delayed release 10/01/2021 Take 1 tablet every day by oral route. B Complex ? 1 tab QD calcium ? 600 mg tab QD Co Q-10 100 mg capsule ? Take 1 capsule every day by oral route as directed. DILT-XR 240 mg capsule, extended release ? TAKE 1 CAPSULE DAILY hydrocodone 5 mg-acetaminophen 325 mg tablet ? TAKE 1 TABLET BY MOUTH UP TO THREE TIMES DAILY NEE DED.
--- OUTSIDE RECORDS SUMMARY | 2022-09-28 16:09 | XMS_ITS ---
:1945 Author Care Team Providers Name Role Phone VASILE GONZALES MD Primary Care Provider [phone] Allergies Code Code System Name Reaction Severity Status Onset NKDA ? Medications Name Status Start Date Stop Date ? ? aspirin 81 mg tablet,delayed release Active 10/01/2021 Not available Take 1 tablet every day by oral route. atorvastatin 10 mg tablet Completed ? 2015 Take 1 tablet every day by oral route for 30 days. azithromycin 250 mg tablet Completed ? 01/13 TAKE 2 TABLETS (500 MG) BY ORAL ROUTE O NCE DAILY FOR 1 DAY THEN 1 TABLET (250 MG) BY ORAL ROUTE ONCE DAILY FOR 4 DAYS B Complex Active ? Not available 1 tab QD Boostrix Tdap 2.5 Lf unit-8 mcg-5 Lf/0.5 mL Completed ? 11/12/2019 intramuscular suspension calcium Active ? Not available 600 mg tab QD Co Q-10 100 mg capsule Active ? Not avail able Take 1 capsule every day by oral route as directed. DILT-XR 240 mg capsule, extended release Active ? Not available diltiazem CD 240 mg capsule,extended release 24 hr Completed 03/26/2016 04/16/2016 Take 1 capsule every day by oral route. doxycycline hyclate 100 mg tablet Completed ? 07/05/2022 TAKE 1 TABLET BY MOUTH TWICE DAILY Fluad Quad (65yr up)(PF) 60 mcg (15 mcg x 4)/ 0.5mL IM syringe Completed ? 11/29/2020 ADM 0.5ML IM UTD Fluzone High-Dose (PF) 180 mcg/0.5 mL intramuscular syri nge Completed ? 05/29/2020 ADMINISTER 0.5ML IN THE MUSCLE DIRECTED Gemtesa 75 mg tablet Completed 11/11/2021 07/05/2022 TAKE 1 T
--- OUTSIDE RECORDS SUMMARY | 2022-09-28 16:09 | XMS_ITS ---
:1945 Author Care Team Providers Name Role Phone Saul Cheng Primary Care Provider Unavailable Allergies Code Code System Name Reaction Severity Status Onset NKDA ? Medications Name Status Start Date Stop Date ? ? aspirin 81 mg tablet,delayed release Active ? Not available Take 1 tablet every day by oral route. atorvastatin 10 mg tablet Completed ? 2015 Take 1 tablet every day by oral route for 30 days. azithromycin 250 mg tablet Completed ? 01/13 Boostrix Tdap 2.5 Lf unit-8 mcg-5 Lf/0.5 mL Active ? Not available intramuscular suspension Calcium 600 Completed ? 11/29/2020 CoQ10 SG 100 Active ? Not available DILT-XR 240 mg capsule, extended release Active ? Not available diltiazem CD 240 mg capsule,extended release 24 hr Active ? Not available doxycycline hyclate 100 mg tablet Active ? Not available TAKE 1 TABLET BY MOUTH TWICE DAILY Fluad Quad (65yr up)(PF) 60 mcg (15 mcg x 4)/ 0.5mL IM syringe Completed ? 11/29/2020 ADM 0.5ML IM UTD Fluzone High-Dose (PF) 180 mcg/0.5 mL intramuscular syri nge Completed ? 05/29/2020 ADMINISTER 0.5ML IN THE MUSCLE DIRECTED Gemtesa 75 mg tablet Active ? Not availab le TAKE 1 TABLET DAILY hydrocodone 5 mg-acetaminophen 325 mg tablet Active ? Not available TAKE 1 TABLET BY MOUTH UP TO THREE TIMES DAILY NEEDED. ID NOW COVID-19 Test Kit Active ? Not fred ilable TEST DIRECTED TODAY krill oil 350 mg-om-3 90 mg-dha 24 mg-epa 50 mg-phospholipid s capsule Completed ? 10/01/2021
[2022-09-28 16:10] VITALS: BP 104/74; PULSE 66; RESP 18; TEMP 35.9; O2SAT 98
--- NOTE | 2022-09-28 16:23 | ADMGEN ---
This patient, Lencho Ramsay, was admitted to 2nd Floor Room 209-1. Patient/family oriented to hospital policies and general routines including ID bracelet, bed and alarms, visiting hours, pain management, procedures, bathroom and other care routines, personal items, smoking policy, room service/diet, and visiting hours. Information on how to activate the Rapid Response Team has been discussed. Patient/Family are encouraged to report perceived risks to care and to ask questions if they do not understand what they are told or what they should do.
[2022-09-28 16:25] VITALS: BP 104/74; PULSE 66; RESP 18; TEMP 35.9; O2SAT 98
[2022-09-28 16:49] VITALS: BMI 32.3
[2022-09-28] MEDS: RIVAROXABAN 10 MG TABLET 20 MG PO (17:48)
[2022-09-28] MEDS: traZODone HCL 50 MG TABLET PO (21:19)
[2022-09-28 23:18] VITALS: BP 110/62; PULSE 75; RESP 17; TEMP 36.6; O2SAT 95
[2022-09-29 08:00] VITALS: BP 99/59; PULSE 71; RESP 19; TEMP 35.6; O2SAT 93
[2022-09-29] MEDS: MIRABEGRON 25 MG ER TABLET 50 MG PO (08:08)
[2022-09-29] MEDS: ASPIRIN 81 MG ENTERIC TABLET PO (08:08)
[2022-09-29] MEDS: dilTIAZem HCL CD 180 MG CAP.ER.24H PO (08:08)
--- NOTE | 2022-09-29 09:25 | PM.IMHP ---
H&P: HPI History of Present Illness Date/Time: 09/29/22 09:25 Chief Complaint: rehab , weakness, COVID Narrative: this is a 77-year-old male that presented to to [facility] with complaints of generalized weakness status post fall. Patient was diagnosed with COVID stabilized and transitioned to our swing bed. Patient admitted in swing bed for rehabilitation due to decreased balance decreased mobility in severe limited function endurant and/or mobility. The patient denies SOB, CP, palpitation, extremity numbness, lightheadedness, dizziness, constipation, diarrhea, chills, or fever. patient has no complaints at this time. Review of Systems Review of Systems: A 14 organ system Review of Systems was performed and pertinent positives included in the HPI, otherwise remaining ROS is negative. [facility] Past Medical History Medical History (Updated 09/29/22 @ 09:34 by BEENA Mike) Atrial fibrillation TIA (transient ischemic attack) Family History Family History Mother Alzheimer disease Social History Social History (Updated 09/28/22 @ 16:26 by May Herrera RN) Smoking status: Current every day smoker Tobacco type: cigarettes and cigars Second hand tobacco smoke exposure: No Additional smoking assessment comments: 1 cigar every two days. Alcohol intake: never Substance use: never Substance use type: does not use Last use: unknown but w/in this year Lack of Transportation: No Lack of Food: Never True Current Housing: I Have Housing Concerned About Future Housing: No Difficulty Paying Gas/Electric Bills: No Difficulty Paying for Meds: No Currently Unemployed: No Education: High School Diploma/GED Difficulty w/ Childcare or Family Care: No Spiritual care concerns: No Meds Home Medications and Allergies Home Medications Medication Instructions Recorded Confirmed Type aspirin 81 mg tablet 81 mg PO DAILY 05/17/22 09/28/22 History diltiazem HCl 240 mg 1 cap PO DAILY 05/17/22 09/28/22 History capsule,extended release 24 hr, controlled (DILT-XR) rivaroxaban 20 mg tablet (Xarelto) 1 tablet PO DAILY 05/17/22 09/28/22 History rosuvastatin 10 mg tablet 1 tablet PO DAILY 05/17/22 09/28/22 History Adult One Daily Multivitamin 1 tablet PO DAILY 09/24/22 09/28/22 History B Complex 1 tablet PO DAILY 09/24/22 09/28/22 History Vitamin D3 5,000 mcg PO DAILY 09/24/22 09/28/22 History calcium citrate 400 mg PO DAILY 09/24/22 09/28/22 History coQ10 (ubiquinol) 100 mg capsule 100 mg PO BID 09/24/22 09/28/22 History mirabegron 50 mg tablet,extended 50 mg PO DAILY 09/24/22 09/28/22 History release 24 hr (Myrbetriq) Allergies Allergy/AdvReac Type Severity Reaction Status Date / Time No Known Allergies Allergy Verified 09/24/22 23:52 Vital Signs Vital Signs - 24 hr 09/28/22 16:10 09/28/22 23:18 09/29/22 08:00 Temperature 96.7 F L 97.8 F 96.1 F L Pulse Rate 66 75 71 Respiratory Rate 18 17 19 Blood Pressure 104/74 110/62 99/59 L Pulse Oximetry 98 95 93 Oxygen Delivery Room Air Room Air Room Air 09/28/22 16:25 Temperature 96.7 F L Pulse Rate 66 Respiratory Rate 18 Blood Pressure 104/74 Pulse Oximetry 98 Oxygen Delivery Room Air Exam Narrative: GENERAL: This is a well-nourished, well-developed patient, in no apparent distress. HEAD: normocephalic, atraumatic. EYES: PERRL. Sclera clear/white. Vision is grossly intact. EARS: External ears normal, auditory canals clear and without drainage, TMs normal without perforation. Hearing grossly intact. NOSE: External nose normal with no obvious nasal discharge, nares without redness, no rhinorrhea. THROAT: Mucous membranes moist, posterior pharynx clear. NECK: Neck supple, non-tender without lymphadenopathy, masses or thyromegaly. CARDIOVASCULAR: Regular rate and rhythm without murmurs, gallops, or rubs. RESPIRATORY: Clear to auscul
[2022-09-29 16:00] VITALS: BP 110/61; PULSE 68; RESP 20; TEMP 36.1; O2SAT 94
[2022-09-29] MEDS: RIVAROXABAN 10 MG TABLET 20 MG PO (17:09)
[2022-09-29] MEDS: traZODone HCL 50 MG TABLET PO (20:12)
[2022-09-29 23:02] VITALS: BP 138/79; PULSE 75; RESP 16; TEMP 36.6; O2SAT 96
--- NOTE | 2022-09-30 04:15 | PC.NURSE ---
Bed alarm was activated, upon entering the room this RN found the pt starting to attempt to get up independently from the bed. Pt stopped once instructed. Pt was somewhat confused at first thinking he was home, but was reoriented. Pt assisted to stand to use urinal then was transferred from bedside to chair w/standby assist. Pt can ambulate fairly, but makes small steps which could lead to a fall. Pt is the chair w/his feet reclined and a blanket for comfort. Call light and chair alarm on for pt safety.
--- OUTSIDE RECORDS SUMMARY | 2022-09-30 07:15 | XMS_ITS ---
:1945 Author Care Team Providers Name Role Phone DR. VASILE GONZALES Primary Care Provider [phone] DR. VASILE GONZALES Referring Provider [phone] Allergies Code Code System Name Reaction Severity [...]
--- OUTSIDE RECORDS SUMMARY | 2022-09-30 07:15 | XMS_ITS ---
:1945 Author Care Team Providers Name Role Phone VASILE GONZALES MD Primary Care Provider [phone] Allergies Code Code System Name Reaction Severity [...]
[2022-09-30 08:00] VITALS: BP 118/63; PULSE 94; RESP 14; TEMP 35.9; O2SAT 94
[2022-09-30] MEDS: MIRABEGRON 25 MG ER TABLET 50 MG PO (09:03)
[2022-09-30] MEDS: ASPIRIN 81 MG ENTERIC TABLET PO (09:03)
[2022-09-30] MEDS: dilTIAZem HCL CD 180 MG CAP.ER.24H PO (09:03)
[2022-09-30 16:00] VITALS: BP 100/68; PULSE 72; RESP 18; TEMP 36.6; O2SAT 94
[2022-09-30] MEDS: RIVAROXABAN 10 MG TABLET 20 MG PO (17:25)
[2022-09-30] MEDS: traZODone HCL 50 MG TABLET PO (21:03)
--- NOTE | 2022-09-30 23:28 | PC.NURSE ---
Patient was awake and oriented during the earlier portion of the evening. He stated that I was really out of it when that other lady was here . We discussed him feeling much better. When the patient was rounded on at 2300, he was no longer oriented. He was confused, and stated I want to get up. When asked what he wanted to do when he got up, he stated I don't know. I just want to get up . The patient was re-oriented, and reminded that he had asked for a sleeping pill, and had already taken it. That it was time for bed. The patient then responded, I need to go to sleep, but I can't . Patient was re-positioned, the TV was turned off, and the lights were turned down. Patient was reassured that he would be checked on in a few minutes. He appeared to feel a little better, and tried to go to sleep.
[2022-09-30 23:38] VITALS: BP 109/55; PULSE 73; RESP 16; TEMP 36.1; O2SAT 97
[2022-10-01] MEDS: MIRABEGRON 25 MG ER TABLET 50 MG PO (07:55)
[2022-10-01] MEDS: ASPIRIN 81 MG ENTERIC TABLET PO (07:55)
[2022-10-01 08:00] VITALS: BP 95/53; PULSE 88; RESP 16; TEMP 36; O2SAT 95
--- NOTE | 2022-10-01 10:04 | PM.DS ---
DS: Admitting Diagnosis Discharge Date 10/01/2022 Admitting Diagnosis rehab, covid DS: Discharge Diagnosis Discharge Diagnosis (1) Generalized weakness: Code(s): R53.1 - Weakness Status: Acute Assessment and Plan: ? Exhibit tolerance during physical activity as evidenced by a normal fluctuation of vital signs during physical activity. ? Patient will be ability to perform required activities of daily living. ? Provide appropriate nutrition for healing and strength. ? Use appropriate to prevent falls. ? Continue physical therapy/occupational therapy. (2) COVID-19: Code(s): U07.1 - COVID-19 Status: Acute Assessment and Plan: Continue isolation until 10/05/2022 patient asymptomatic (3) Atrial fibrillation: Code(s): I48.91 - Unspecified atrial fibrillation Status: Acute Assessment and Plan: controlled continue diltiazem decreased to 180 mg daily instead of 240 mg daily due to hypotension will continue to monitor blood pressure reading and heart rate and adjust medication as needed (4) Orthostatic hypotension: Code(s): I95.1 - Orthostatic hypotension Status: Acute Assessment and Plan: will adjust blood pressure medication accordingly will continue to monitor patient given instructions on how to manage orthostatic hypotension (5) HTN (hypertension): Code(s): I10 - Essential (primary) hypertension Status: Acute Assessment and Plan: patient currently hypotensive will adjust medication as needed patient lisinopril DC on discharge will not resume cardizem decreased to 120 mg daily instructed to say blood pressure reading daily along with heart rate and give results to primary care physician for possible medication adjustment DS: Summary Hospital Course Reason for hospitalization: rehab weakness Hospital Course: ?this is a 77-year-old male that presented to? to [facility] with complaints of generalized weakness status post fall.? Patient was diagnosed with COVID stabilized and transitioned to our swing bed.? ? Patient admitted in swing bed for rehabilitation due to decreased balance decreased mobility in severe limited function endurant and/or mobility. this day of dischargeThe patient denies SOB, CP, palpitation, extremity numbness, lightheadedness, dizziness, constipation, diarrhea, chills, or fever. patient has no complaints at this time. Discharge instructions reviewed with patient, as well as provided in writing per nursing staff. The instructions also include specific and strict return/GO TO THE ER as well as f/u information. All questions have been answered, and the patient and/or family deny any further questions with discharge and discharge plan.Patient remain on isolation for COVID until 10/05 patient Cardizem medication has been adjusted due to his low blood pressure instructed to take his blood pressure reading daily along with his heart rate and give results to primary care physician for possible medication adjustment . patient ambulating ww for 100 ft CGA. Time Spent with Patient Time attestation: Total time spent providing and/or coordinating discharge services: Exam Narrative: GENERAL: This is a well-nourished, well-developed patient, in no apparent distress. HEAD: normocephalic, atraumatic. EYES: PERRL. Sclera clear/white. Vision is grossly intact. EARS: External ears normal, auditory canals clear and without drainage, TMs normal without perforation. Hearing grossly intact. NOSE: External nose normal with no obvious nasal discharge, nares without redness, no rhinorrhea. THROAT: Mucous membranes moist, posterior pharynx clear. NECK: Neck supple, non-tender without lymphadenopathy, masses or thyromegaly. CARDIOVASCULAR: Regular rate and rhythm without murmurs, gallops, or rubs. RESPIRATORY: Clear to auscultation. Breath sounds equal bilaterally. No wheezes, rales, or rhonchi.
--- NOTE | 2022-10-01 15:15 | PC.NURSE ---
Patient discharged home. Patient left via personal vehicle accompanied by his and daughter. Belongings sent home with patient.
--- NOTE | 2022-10-02 14:41 | PC.NURSE ---
Spouse states they received and understood the discharge instructions. Spouse also states he's doing very well .
== END 2022-10-01 15:15 | disposition home or self-care (01) | DRG 178 ==
PROVIDERS: Admitting Provider Internal Medicine; PCP Internal Medicine; Visit Provider Internal Medicine
DX: U07.1 COVID-19 (principal); I48.20 Chronic atrial fibrillation, unspecified; I10 Essential (primary) hypertension; I95.1 Orthostatic hypotension; R53.1 Weakness; F17.210 Nicotine dependence, cigarettes, uncomplicated; F17.290 Nicotine dependence, other tobacco product, uncomplicated; Z86.73 Personal history of transient ischemic attack (TIA), and cerebral infarction without residual deficits
CPT/HCPCS: 97110; 97161; 97165; 97530; 97535; A9270

== ENCOUNTER 2022-11-09 02:01 | Emergency (ER) | payer MEDICARE, SELFPAY ==
[2022-11-09] VITALS (47 sets, daily range): BP systolic 119–159; BP diastolic 58–95; PULSE 66–87; RESP 13–24; TEMP 36.7–36.8; O2SAT 91–100
--- NOTE | ~2022-11-09 | CT_ITS ---
EXAMINATION: CT brain wo con DATE: 11/09/2022 02:24 INDICATION: Altered mental status. Near syncope. TECHNIQUE: Computed tomography (CT) of the head was performed without intravenous contrast. The mA wa s adjusted according to patient size. Iterative reconstruction technique was employed. The dose-lengt h product was 681.00 mGy-cm. COMPARISON: Head CT 09/25/2022 FINDINGS: There are old infarcts in the left thalamus and left basal ganglia. There are scattered are as of low attenuation in the cerebral white matter, which is within normal limits for the patient's a ge. There is no intracranial hemorrhage, acute infarction, or abnormal intracranial mass lesion. The ventricles are normal in size. The orbits are normal. The paranasal sinuses are clear. There is a sma ll right mastoid effusion. IMPRESSION: 1. 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 Reviewed, dictated and finalized at location A. STANT CHIEF TRAIN DISPATCHER
--- NOTE | ~2022-11-09 | CT_ITS ---
EXAMINATION: CTA brain DATE: 11/09/2022 04:07 INDICATION: Aphasia. TECHNIQUE: Computed tomographic angiography (CTA) of the head was performed with 100 mL Omnipaque-350 intravenous contrast. Automated exposure control and iterative reconstruction technique were employe d. The dose-length product was 528.11 mGy-cm. Maximum intensity projection 3D reconstructions were c reated. Volume-rendered 3D reconstructions of the intracranial arteries were created by the technolog ist on a separate workstation. COMPARISON: Head CT 11/09/2022 FINDINGS: There are old infarcts in the left thalamus and left basal ganglia. There are scattered are as of low attenuation in the cerebral white matter, which is within normal limits for the patient's a ge. There is no intracranial hemorrhage, acute infarction, or abnormal intracranial mass lesion. The ventricles are normal in size. There is mild mucosal thickening in the paranasal sinuses. There is a small right mastoid effusion. The orbits are normal. The vertebral arteries are codominant. There is no significant stenosis of basilar artery or the posterior cerebral arteries. There is no significant stenosis of the intracranial internal carotid arteries or anterior or middle cerebral arteries. Ante rior communicating artery is normal. The posterior communicating arteries are normal. There is no ane urysm. IMPRESSION: 1. 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 2. No aneurysm or significant intracranial arterial stenosis. Reviewed, dictated and finalized at location A. RAL JUDICIAL LAW CLERK
--- NOTE | ~2022-11-09 | XR_ITS ---
EXAMINATION: XR chest 1V portable DATE: 11/09/2022 02:34 INDICATION: Shortness of breath. Slurred speech. TECHNIQUE: A single frontal view of the chest was obtained. COMPARISON: Chest single view 09/25/2022, CT abdomen and pelvis 05/18/2019 FINDINGS: There are airspace opacities in the lower lung zones. No pleural effusion or pneumothorax. Cardiomegaly is noted. There are prominent paracardial fat pads. IMPRESSION: 1. Airspace opacities in the lower lung zones, consistent with atelectasis or less likely pneumonia. 2. Cardiomegaly. Reviewed, dictated and finalized at location A. DER SET UP OPERATOR THREAD IMPRESSION: 1. Airspace opacities in the lower lung zones, consistent with atelectasis or l ess likely pneumonia. 2. Cardiomegaly.
--- NOTE | 2022-11-09 02:08 | ECG_ITS ---
Measurements Intervals [place] Rate: 72 P: AK: 0 QRS: 23 QRSD: 76 T: 23 QT: 394 QTc: 434 Interpretive Statements ATRIAL FIBRILLATION ABNORMAL RHYTHM ECG COMPARED TO ECG 09/25/2022 01:02:42 NO SIGNIFICANT CHANGES Electronically Signed On 11-09-2022 9:48:20 SENIOR IT SPECIALIST by Fuentes Sales M.D.
--- NOTE | 2022-11-09 02:14 | ED.NEUROSD ---
HPI - Neuro Symptoms/Deficit General Chief Complaint: Suspected CVA Stated Complaint: AMS, NEAR SYNCOPE Time Seen by Provider: 11/09/22 02:03 Source: patient, EMS and RN notes reviewed Mode of arrival: EMS History of Present Illness HPI Narrative: This is a 77 year old male with history of atrial fibrillation, hyperlipidemia who presents for evaluation of altered mental status. EMS reports patient went to sleep at 11 pm at his normal state. They report patient woke up 30 minutes ago, and his noticed that his eyes were going to back of his head. She also noticed that patient had slurred speech. EMS reports FAST ED score of 0. Patient is oriented x 3. EMS reports patient was taken off his anticoagulation 2-3 days ago to prepare for cervical spinal stenosis surgery. Patient denies weakness, shortness of breath, chest pain, nausea or vomiting. He does noticed that his speech is slurred. He denies blurred vision. Related Data Home Medications Medication Instructions Recorded Confirmed aspirin 81 mg tablet 81 mg PO DAILY 05/17/22 09/28/22 rivaroxaban 20 mg tablet (Xarelto) 1 tablet PO DAILY 05/17/22 09/28/22 rosuvastatin 10 mg tablet 1 tablet PO DAILY 05/17/22 09/28/22 Adult One Daily Multivitamin 1 tablet PO DAILY 09/24/22 09/28/22 B Complex 1 tablet PO DAILY 09/24/22 09/28/22 Vitamin D3 5,000 mcg PO DAILY 09/24/22 09/28/22 calcium citrate 400 mg PO DAILY 09/24/22 09/28/22 coQ10 (ubiquinol) 100 mg capsule 100 mg PO BID 09/24/22 09/28/22 mirabegron 50 mg tablet,extended 50 mg PO DAILY 09/24/22 09/28/22 release 24 hr (Myrbetriq) Allergies Allergy/AdvReac Type Severity Reaction Status Date / Time No Known Allergies Allergy Verified 09/24/22 23:52 [facility] Past Medical History Medical History (Updated 11/09/22 @ 09:30 by Chantelle Rodgers MD) Atrial fibrillation TIA (transient ischemic attack) Family History Family History Mother Alzheimer disease Social History Social History (Updated 09/28/22 @ 16:26 by May Herrera RN) Smoking status: Current every day smoker Tobacco type: cigarettes and cigars Second hand tobacco smoke exposure: No Additional smoking assessment comments: 1 cigar every two days. Alcohol intake: never Substance use: never Substance use type: does not use Last use: unknown but w/in this year Lack of Transportation: No Lack of Food: Never True Current Housing: I Have Housing Concerned About Future Housing: No Difficulty Paying Gas/Electric Bills: No Difficulty Paying for Meds: No Currently Unemployed: No Education: High School Diploma/GED Difficulty w/ Childcare or Family Care: No Spiritual care concerns: No Course Reevaluation(s) Reevaluation #1: PAtient presented with slurred speech, forced gaze upward with partial hemianopia and facial droop. He was given TPA after discussion with [facility] and after discussion of risk and benefits with family. PAtient did not have any contraindiction.He has had mild improvement. He continues to have slurred speech. He was going to ER but now he may be direct admit to [facility]. I have discussed case with Dr. Garcia who agrees to take over care while patient awaits transfer for CVA Date: 11/09/22 Time: 09:22 Consultations Consultation #1: Dr. Sol accepts patient to ER at [facility]. Porter of stroke team agrees patient should have gotten tPA. Date: 11/09/22 Time: 05:15 Vital Signs Vital signs: Vital Signs Temperature 98.2 F 11/09/22 02:33 Pulse Rate 67 11/09/22 02:33 Respiratory Rate 18 11/09/22 02:33 Blood Pressure 152/83 H 11/09/22 02:33 Pulse Oximetry 95 11/09/22 02:33 Temperature 98.1 F 11/09/22 05:54 Pulse Rate 74 11/09/22 05:54 Respiratory Rate 18 11/09/22 05:54 Blood Pressure 128/88 11/09/22 05:54 Pulse Oximetry 96 11/09/22 05:54 Oxygen Delivery Room Air 11/09/22 02:39 MDM - Neuro S
[2022-11-09 02:50] LABS: Basophils Absolute Auto 0.1 K/mm3 (0.0-0.1); Basophils Percent Auto 0.9 % (0.2-1.2); Eosinophils Absolute Auto 0.3 K/mm3 (0-0.3); Eosinophils Percent Auto 2.9 % (0-4.4); Hematocrit 40.4 % (42.0-52.0); Immature Granulocyte Absolute 0.02 K/mm3 (0.00-0.031); Immature Granulocyte Percent A 0.2 % (0-0.5); Lymphocytes Absolute Auto 3.99 K/mm3 (0.9-3.2); Lymphocytes Percent Auto 42.4 % (18.3-44.2); Mean Corpuscular HGB Conc 32.2 g/dl (32-36); Mean Corpuscular Hemoglobin 30.7 pg (26-34); Mean Corpuscular Volume 95.5 fl (80-100); Mean Platelet Volume 10.8 fl (7.4-10.4); Monocytes Absolute Auto 0.8 K/mm3 (0.1-0.6); Monocytes Percent Auto 8.3 % (2.6-8.5); Neutrophils Absolute Auto 4.3 K/mm3 (1.3-6.7); Neutrophils Percent Auto 45.3 % (45.5-73.1); Platelet Count Result 228 k/mm3 (150-375); Red Blood Count 4.23 M/mm3 (4.6-6.20); Red Cell Distribution Width 13.5 % (11.5-14.5); White Blood Count 9.4 K/mm3 (4.5-10.0)
[2022-11-09 03:06] LABS: Alanine Aminotransferase 20 U/L (6-50); Albumin Level 3.8 g/dL (3.5-5.1); Alkaline Phosphatase 56 U/L (38-126); Anion Gap 5 mmol/L (8-16); Aspartate Amino Transferase 26 U/L (17-59); Bilirubin,Total 0.3 mg/dL (0.2-1.3); Blood Urea Nitrogen 23 mg/dL (9-20); Carbon Dioxide 29 mmol/L (22-30); Chloride 103 mmol/L (98-107); Estimated CRCL calculation 83 ml/min; Estimated Glomerular Filt Rate > 60; Glucose 103 mg/dL (65-110); Sodium 137 mmol/L (137-145)
[2022-11-09 03:18] LABS: NT Pro B Type Natriuretic Pept 1490 pg/mL (5-100); Troponin I < 0.012 ng/mL (0.000-0.034)
[2022-11-09 03:26] LABS: INR 1.1; Prothrombin Time 13.9 Seconds (11.1-14.7)
[2022-11-09 03:27] LABS: Partial Thromboplastin Time 26.3 SECONDS (22.3-36.8)
[2022-11-09] MEDS: IPRATROPIUM BR 0.02% INH SOLN 0.5 MG/2.5 ML VIAL INHALATION (03:38)
[2022-11-09] MEDS: ALBUTEROL SULFATE NEB 2.5 MG/3 ML INH 5 MG INHALATION (03:38)
[2022-11-09] MEDS: FUROSEMIDE INJ 40 MG/4 ML VIAL IV PUSH (04:26)
--- NOTE | 2022-11-09 04:57 | PC.NURSE ---
Patient able to now track with his eyes. Speech remains slurred/garbled.
[2022-11-09 05:44] LABS: Glucose Point of Care 120 mg/dl (65-105)
[2022-11-09 06:06] LABS: Influenza A QL RT-PCR Negative (Negative); Influenza B QL RT-PCR Negative (Negative); SARS-CoV-2 RNA PCR Negative
--- NOTE | 2022-11-09 07:30 | PC.NURSE ---
pt alert and oriented x 3. speech somewhat slurred and delayed but easy to understand. pt and family states has improved since alteplase.
--- NOTE | 2022-11-09 07:34 | PC.NURSE ---
Daren from transfer center @ [facility] rerouting pt to possibly go to [facility] direct admit. Told us to place on hold the transfer to [facility] until they hear from [facility] about a bed assignment
--- NOTE | 2022-11-09 11:21 | PC.NURSE ---
Assumed pt care from Lanette Carreon RN
--- NOTE | 2022-11-09 12:05 | PC.NURSE ---
Called transfer line for an update. Per transfer center still waiting for bed.
--- NOTE | 2022-11-09 12:05 | PC.NURSE ---
called [facility] for room assignment, still waiting for transfer center to call. [id number].
--- NOTE | 2022-11-09 12:35 | PC.NURSE ---
1238 Norma from the transfer center, updated on pt vital and room assignment given. Pt to be transferred to [facility], room 596 A. Ambulance ETA 45.
== END 2022-11-09 16:42 | disposition short-term general hospital (02) ==
PROVIDERS: Emergency Provider General Practice; PCP Internal Medicine
DX: I63.9 Cerebral infarction, unspecified (principal); I48.91 Unspecified atrial fibrillation; Z20.822 Contact with and (suspected) exposure to COVID-19; E78.5 Hyperlipidemia, unspecified; F17.290 Nicotine dependence, other tobacco product, uncomplicated; R29.710 NIHSS score 10; R06.2 Wheezing; Z79.82 Long term (current) use of aspirin; Z79.01 Long term (current) use of anticoagulants; I51.7 Cardiomegaly; R91.8 Other nonspecific abnormal finding of lung field
CPT/HCPCS: 36415; 37195; 51702; 70450; 70496; 71045; 80053; 82948; 83880; 84484; 85025; 85610; 85730; 87636; 93005; 94640; 96374; 99285; J1940; J2997; Q9967

== ENCOUNTER 2023-03-19 09:40 | Emergency (ER) | payer MEDICARE, SELFPAY ==
[2023-03-19] VITALS (21 sets, daily range): BP systolic 122–148; BP diastolic 73–93; PULSE 58–78; RESP 16–20; TEMP 36.2; O2SAT 97–100
--- NOTE | ~2023-03-19 | CT_ITS ---
CT head without contrast Indication: Multiple falls COMPARISON: 11/09/2022 Technique: Serial scans were obtained through the brain without the administration of contrast. Dose reduction technique was used on this scan by utilizing automated exposure control and iterative recon struction technique. The dose-length product (DLP) was 605.33 mGy-cm. Findings: There is no evidence of intracranial hemorrhage, mass lesion, or acute infarct. Chronic lac unar infarct noted in the left thalamus. The ventricles and subarachnoid spaces are dilated, consiste nt with mild to moderate atrophy. Low attenuation regions are seen within the periventricular white matter bilaterally, likely representing changes from chronic microvascular ischemic disease. There is no evidence of edema, mass effect or midline shift. The visualized paranasal sinuses and mastoid a ir cells are clear. Impression: No intracranial hemorrhage, mass, or acute infarct. Chronic left lateral clavicular infarct. Atrophy and chronic white matter changes, as above. Reviewed, dictated and finalized at location . Impression: No intracranial hemorrhage, mass, or acute infarct. Chronic left lateral clavicular infarct. Atrophy and chronic white matter changes, as above.
--- NOTE | ~2023-03-19 | XR_ITS ---
XR chest 2V 03/19/2023 10:38 Indication: Weakness. Recent falls. Procedure: 2 view chest Comparison: 11/09/2022 Findings: Cardiomegaly. Chronic bibasilar atelectasis/scarring. No acute focal pneumonia, edema, sign ificant effusion or pneumothorax. No acute osseous abnormality. Impression: 1: No acute cardiopulmonary disease. Reviewed, dictated and finalized at location B. Impression: 1: No acute cardiopulmonary disease.
--- NOTE | 2023-03-19 09:49 | ECG_ITS ---
Measurements Intervals [place] Rate: 71 P: [place]: 0 QRS: -21 QRSD: 94 T: 23 QT: 410 QTc: 446 Interpretive Statements ATRIAL FIBRILLATION INCOMPLETE RIGHT BUNDLE BRANCH BLOCK DELAYED PRECORDIAL R/S TRANSITION LOW QRS VOLTAGE IN PRECORDIAL LEADS BORDERLINE T WAVE ABNORMALITY- ANTERIOR LEADS BASELINE ARTIFACT- II, III, AVR, AVL, AVF ABNORMAL ECG COMPARED TO ECG 11/09/2022 02:09:10 NO SIGNIFICANT CHANGES Electronically Signed On 03-19-2023 10:36:17 CDT by Julio Cesar Huff D.O.
--- NOTE | 2023-03-19 10:24 | ED.FALL ---
HPI - Fall General Chief Complaint: Fall Stated Complaint: multiple falls Time Seen by Provider: 03/19/23 10:16 History of Present Illness HPI Narrative: 77-year-old male history of A-fib, hyperlipidemia, cervical stenosis presents to the emergency room for evaluation of history of multiple falls recently. Patient states that he has been experiencing increased weakness and dizziness and has fallen 3 times in the past week patient denies any chest pain or syncope. Patient was scheduled to have an anterior cervical discectomy and fusion to relieve his cervical stenosis in November, but he had a stroke denies any unilateral weakness, confusion, or aphasia. Patient states he only injury he has experienced his abrasion to his left arm. Related Data Home Medications Medication Instructions Recorded Confirmed aspirin 81 mg tablet 81 mg PO DAILY 05/17/22 09/28/22 rivaroxaban 20 mg tablet (Xarelto) 1 tablet PO DAILY 05/17/22 09/28/22 rosuvastatin 10 mg tablet 1 tablet PO DAILY 05/17/22 09/28/22 Adult One Daily Multivitamin 1 tablet PO DAILY 09/24/22 09/28/22 B Complex 1 tablet PO DAILY 09/24/22 09/28/22 Vitamin D3 5,000 mcg PO DAILY 09/24/22 09/28/22 calcium citrate 400 mg PO DAILY 09/24/22 09/28/22 coQ10 (ubiquinol) 100 mg capsule 100 mg PO BID 09/24/22 09/28/22 mirabegron 50 mg tablet,extended 50 mg PO DAILY 09/24/22 09/28/22 release 24 hr (Myrbetriq) Allergies Allergy/AdvReac Type Severity Reaction Status Date / Time No Known Allergies Allergy Verified 09/24/22 23:52 Review of Systems Review of Systems: CONSTITUTIONAL: Denies fever, chills, or sweats. EYES: Denies visual changes, redness, or discharge. ENT: Denies rhinorrhea, congestion, sore throat, or otalgia. CARDIOVASCULAR: Denies chest pain, palpitations, or edema. RESPIRATORY: Denies cough or dyspnea. GASTROINTESTINAL: Denies abdominal pain, nausea, vomiting, or diarrhea. GENITOURINARY: Denies dysuria or hematuria. SKIN: Denies rash or itching. MUSCULOSKELETAL: Denies back pain, joint pain, or myalgia. NEUROLOGIC: Denies headache, numbness, dizziness, or weakness. PSYCHIATRIC: Denies anxiety or depression. [facility], [facility] Past Medical History Medical History Atrial fibrillation TIA (transient ischemic attack) Family History Family History Mother Alzheimer disease Social History Social History Smoking status: Current every day smoker Tobacco type: cigarettes and cigars Second hand tobacco smoke exposure: No Additional smoking assessment comments: 1 cigar every two days. Alcohol intake: never Substance use: never Substance use type: does not use Last use: unknown but w/in this year Lack of Transportation: No Lack of Food: Never True Current Housing: I Have Housing Concerned About Future Housing: No Difficulty Paying Gas/Electric Bills: No Difficulty Paying for Meds: No Currently Unemployed: No Education: High School Diploma/GED Difficulty w/ Childcare or Family Care: No Living arrangements: with family Occupation/Education: retired Spiritual care concerns: No Exam Narrative: GENERAL: Well-appearing, well-nourished, no physical limitations, and in no acute distress. HEAD: Normocephalic, atraumatic. EYES: Conjunctivae normal, PERRLA and EOMI. CHEST: Clear to auscultation. No respiratory distress. No wheezes rales or rhonchi. HEART: Irregular rate and rhythm. No murmur heard. Normal peripheral pulses. ABDOMEN: Soft, nontender, nondistended, normal active bowel sounds. EXTREMITIES: Normal range of motion. No edema. No clubbing or cyanosis SKIN: Warm, dry, no rash. Abrasion noted to left upper arm NEURO: No focal deficits. Alert and oriented x3. MAEW. CN's II-XI intact bilaterally PSYCH: Cooperative. Normal mood and affect. Course Vital Signs Jodi
[2023-03-19 10:31] LABS: Basophils Absolute Auto 0.1 K/mm3 (0.0-0.1); Basophils Percent Auto 0.9 % (0.2-1.2); Eosinophils Absolute Auto 0.2 K/mm3 (0-0.3); Eosinophils Percent Auto 2.9 % (0-4.4); Hematocrit 42.9 % (42.0-52.0); Hemoglobin 13.9 g/dL (14.0-18.0); Immature Granulocyte Absolute 0.01 K/mm3 (0.00-0.031); Immature Granulocyte Percent A 0.1 % (0-0.5); Lymphocytes Absolute Auto 2.25 K/mm3 (0.9-3.2); Lymphocytes Percent Auto 30.1 % (18.3-44.2); Mean Corpuscular HGB Conc 32.4 g/dl (32-36); Mean Corpuscular Hemoglobin 30.1 pg (26-34); Mean Corpuscular Volume 92.9 fl (80-100); Mean Platelet Volume 10.9 fl (7.4-10.4); Monocytes Absolute Auto 0.5 K/mm3 (0.1-0.6); Monocytes Percent Auto 6.6 % (2.6-8.5); Neutrophils Absolute Auto 4.4 K/mm3 (1.3-6.7); Neutrophils Percent Auto 59.4 % (45.5-73.1); Platelet Count Result 210 k/mm3 (150-375); Red Blood Count 4.62 M/mm3 (4.6-6.20); Red Cell Distribution Width 13.4 % (11.5-14.5); White Blood Count 7.5 K/mm3 (4.5-10.0)
[2023-03-19 10:33] LABS: Alanine Aminotransferase 24 U/L (6-50); Alkaline Phosphatase 49 U/L (38-126); Anion Gap 5 mmol/L (8-16); Aspartate Amino Transferase 30 U/L (17-59); Bilirubin,Total 0.9 mg/dL (0.2-1.3); Blood Urea Nitrogen 25 mg/dL (9-20); Calcium 8.7 mg/dL (8.4-10.2); Carbon Dioxide 30 mmol/L (22-30); Chloride 102 mmol/L (98-107); Estimated CRCL calculation 77 ml/min; Estimated Glomerular Filt Rate > 60; Glucose 137 mg/dL (65-110); Potassium 3.9 mmol/L (3.4-5.0); Sodium 137 mmol/L (137-145)
[2023-03-19 11:39] LABS: Appearance Urine Clear (Clear); Bacteria Urine None Seen /hpf; Bilirubin Urine Negative (Negative); Blood Urine Negative (Negative); Color Urine Dark Yellow (Yellow); Glucose Urine UA Negative (Negative); Ketones Urine Negative (Negative); Leukocyte Esterase Ur Trace LEU/UL (Negative); Nitrate Urine Negative (Negative); Non Pathogenic Casts 0-2; Protein Urine Negative (Negative); RBC Urine 0-2 /hpf (0-2); Specific Grav Ur 1.021 (1.001-1.035); Squamous Epithelial Cell Urine None seen /hpf (Few); WBC Urine 0-5 /hpf; pH Urine 5.5 (5.0-9.0)
[2023-03-19 11:41] LABS: Add Urine Microscopic? YES
[2023-03-19 12:15] LABS: Troponin I < 0.012 ng/mL (0.000-0.034)
== END 2023-03-19 14:25 | disposition home or self-care (01) ==
PROVIDERS: Emergency Medicine; Emergency Provider Nurse Practitioner Family; PCP Internal Medicine
DX: R53.1 Weakness (principal); R29.6 Repeated falls; I48.91 Unspecified atrial fibrillation; Z86.73 Personal history of transient ischemic attack (TIA), and cerebral infarction without residual deficits; Z79.01 Long term (current) use of anticoagulants; Z79.82 Long term (current) use of aspirin; F17.290 Nicotine dependence, other tobacco product, uncomplicated; I45.10 Unspecified right bundle-branch block; R94.31 Abnormal electrocardiogram [ECG] [EKG]
CPT/HCPCS: 36415; 70450; 71046; 80053; 81001; 84484; 85025; 93005; 99284